=== PATIENT | female | born 1955 ===

== ENCOUNTER 2018-09-14 17:43 | Inpatient (IN) | payer MEDICAID ==
[~2018-09-14] VITALS: Ht 175.3 cm; Wt 124.0 kg
--- NOTE | ~2018-09-14 | MORECARE ---
CASE MANAGEMENT DISCHARGE SUMMARY PATIENT: STACY DAVIS UNIT: [id number] ADM DATE: 09/14/18 AGE: 62 : 53 SEX: F ROOM/BED: D.2131 AUTHOR: KERRI,DOC PHYSICIAN: REFERRING PHYSICIAN: JAIMIE JENSEN MD DATE OF SERVICE: 10/03/18 Discharge Plan Patient Name: STACY DAVIS Facility: [facility]:[place] : 1955 Planned Disposition: Home Anticipated Discharge Date: 10/02/18 Discharge Date: 10/02/2018 Expected LOS: 18 Initial Reviewer: [id number] Initial Review Date: 09/14/2018 Generated: 10/03/18 8:21 pm Comments DCP- Discharge Planning Updated by [id number]: Demetria Sams on 10/03/18 5:[address] TC TO [facility] TO ADVISE OF DISCHARGE, SPOKE WITH ANSWERING SERVICE, LUIS. REC CB FROM PRIYA GILLIAM. FAXED DISCHARGE MED LIST AND DISCHARGE INSTRUCTION TO [phone]. PATIENT DAUGHTER DID CALL TODAY TO THE UNIT TO SAYS SHE DID NOT THINK SHE COULD PROVIDE THE CARE THE PATIENT NEEDED. SHE DOES NOT HAVE TRANSPORTATION FOR HD. SHE WILL BE CALLING PATIENT MD IN THE AM. CM ADVISED MANE THE HOME HEALTH NURSE. DCP- Discharge Planning Updated by [id number]: Demetria Sams on 10/02/18 3:[address] LATE ENTRY 1300 PATIENT FOR DISCHARGE TO HOME TODAY. PRIMARY NURSE SPOKE WITH BRICE REGARDING TRANSPORTATION TO HOME. PATIENT LIVES IN [place], [place]. SHE IS A TWO MAN ASSIST TO GET OOB. SHE IS UNABLE TO ASSIST ANY WITH SIT TO STAND. PATIENT REPORTEDLY PLACES STAFF AT RISK TRYING TO LIFT OOB TO CHAIR. SHE HAS SEVERE LE EDEMA. HAD TWO OPEN WOUNDS ON LEFT LOWER LEG. PRIMARY NURSE TO EVAL AND REDRESS. PATIENT WEIGHS 273 LBS. TRANSPORT IS APPROXIAMTELY 2 HRS. WOULD NOT TOLERATE SITTING IN VECHICLE FOR 2 HOURS. BRICE SPOKE WITH THE PRIMARY NURSE AND CALLED PATIENT'S DAUGHTER, FRITZ PERALES, WHO WAS ATTEMPTING TO FIND SOME ASSISTANCE FOR TRANSPORTATION POST DISCHARGE. DISCUSS REGARDING SAFE DISCHARGE TO HOME. PCS FORM COMPLETED FOR DISCHARGE TO HOME VIA [facility].. DCP- Discharge Planning Updated by [id number]: Balwinder Gomez on 09/29/18 2:[address] Patient Name: STACY DAVIS Encounter No: [id number] : 1955 Primary Insurance: MEDICAID [place] Anticipated DC Date: 10-02-2018 Planned Disposition: Home WITH HOME HEALTH External Planned Provider: [facility] OFFICE DCP follow-up note: CM SPOKE TO PT IN ROOM WHO REPORTS SHE IS GOING TO GO HOME WITH FAMILY SUPPORT AND TO SPEAK TO HER DAUGHTER KARL PERALES. PT WILL ACCEPT HOME HEALTH AND HAS NO PREFERENCE ON HOME HEALTH PROVIDER, CHOICE SIGNED. PT REFUSES NURSING HOME FACILITY PLACEMENT. CM SPOKE TO KARL PERALES, DAUGHTER, . CM REVIEWED THERAPY NOTES AND EMPHASIZED PT'S LOW LEVEL OF FUNCTIONING. KARL REPORTS HAVING HERSELF AND OTHER FAMILY TO ASSIST PT AT HOME, THEY HAVE WHEELCHAIR AND WILL BE TAKING PT TO AND FROM DIALYSIS. KARL HAS CONTACTED [facility] AND STARTED PROCESS TO REQUEST HOME MEDICAID AIDE SERVICE TO ALSO ASSIST WITH PT'S CARE. KARL REPORTS SHE WILL ARRANGE FAMILY TO GREEN INSPECTOR PT ON DISCHARGE THURSDAY. THEY HAVE NO PREFERENCE ON HOME HEALTH SERVICES. CM CALLED [facility] IN [place], , SPOKE TO PEDRO WHO REPORTS THEY CAN ACCEPT AND ADMIT ON THURSDAY OR THURSDAY DEPENDING ON DISCHARGE DAY. CM FAXED REFERRAL TO [facility] AT [phone]. PT WILL DISCHARGE TO HOME OF DAUGHTER, KARL PERALES, [address] [place] [address]. [phone]. KARL'S NUMBER IS [phone]. FAX DISCHARGE INFORMATION TO [facility], . NOTIFY [facility] OF DISCHAGE AT [phone]. Balwinder Gomez, CASE MANAGEMENT DCP- Discharge Planning Updated by [email or web address]: Balwinder Gomez on 09/28/18 11:[address] Patient Name: STACY DAVIS Encounter No: [id number] : 1955 Primary Insurance: MEDICAID [place] Anticipated DC Date: 10-02-2018 Planned Disposition: Home DCP follow-up note: CM RECEIVED CALL FROM ALISSA DELGADILLO, PT'S DAUGHTER, ; ALISSA REPORTS THAT PT IS NOT ABLE TO WALK, WILL NOT GO TO A NURSING HOME FACILITY AND WILL NOT LET HOME HEALTH COME TO HER HOUSE. PT IS PLANNING TO STAY WITH PT'S DAUGHTER, ABDELRAHMAN'S SISTER, AT DISCHARGE. ALISSA REPORTS THAT PT HAS NO POWER OF RN ENDOSCOPY FOR ANY FAMILY MEMBER AND APPEARS TO BE IN HER RIGHT MIND AT THIS TIME. CM EXPLAINED THAT IF PT IS REFUSING ALL HOME ASSISTANCE OR REHAB SERVICES, CM IS NOT ABLE TO ARRANGE SERVICES AND IF PT IS NOT MAKING SAFE DECISIONS, ADULT PROTECTIVE SERVICES MAY BE CALLED BY CM. ALISSA REPORTS THAT SILVINA OF [facility]ULT [facility]OT[facility] CAME OUT TO PT'S HOME PRIOR TO PT'S ADMISSION AND MET WITH PT IN THE HOME. ALISSA WILL SPEAK TO PT AND ENCOURAGE HER TO ACCEPT HOME HEALTH OR NURSING HOME FACILITY PLACMENT FOR SALES AND MARKETING MANAGER CARE PT HAS MEDICAID ONLY. CM SPOKE TO PT IN ROOM TO DISCUSS DISCHARGE NEEDS AND PLANNING. CM WENT OVER PT'S THERAPY NOTES AND POINTED OUT PT'S INABILITY TO GET OUT OF BED AND EVEN GET AROUND THE ROOM WITHOUT ASSITANCE; CM INFORMED PT THAT SHE NEEDS TO BE DOING MORE AND NEEDS TO BE UP AND ABLE TO SIT IN CHAIR FOR THREE HOURS OF DIALYSIS WELL TRANSFERRING FOR TRANSPORTATION. PT REPORTS THAT SHE HAS BEEN WORKING WITH THERAPY AND HAS NOT REFUSED THERAPY SESSSIONS BUT STATES THERAPY IS NOT GETTING HER UP AND OUT OF BED. CM INSTRUCTED PT TO SPECIFICALLY REQUEST TO BE UP AND WALKING AND OUT OF BED MUCH POSSIBLE. PT REPORTS UNDERSTANDING. CM DISCUSSED AVAILABILITY OF HOME HEALTH, REHAB SERVICES AND MEDICAL EQUIPMENT. PT CONTINUES TO REFUSE PLACEMENT IN NURSING HOME FACILITY,AND HOME HEALTH. PT HAS NO INSURANCE TO COVER INPATIENT REHAB OR REHAB IN NURSING HOME FACILITY. PT STATES SHE HAS HER DAUGHTER AND NUMEROUS NIECES AND NEPHEWS THAT WILL BE ASSISTING IN THE HOME AND THAT FAMILY WILLTRANSPORT HER HOME AT DISCHARGE. CM EXPLAINED THAT PT WILL NEED TO SPEAK TO HER FAMILY AND CONFIRM CARE ARRANGEMENTS PRIOR TO DISCHARGE. PT STATES SHE WILL SPEAK TO HER FAMILY. CM TO FOLLOW AND ASSIST NEEDED. SILVINA NGUYEN OF [facility] TO MEET WITH PT TODAY AND PROVIDE DIALYSIS SCHEDULE FOR [facility] [facility]. PT CONTINUES TO DECLINE HOME HEALTH OR PLACEMENT IN NURSING HOME FACILITY STATING FAMILY WILL BE PROVIDING HER CARE AT HOME. Balwinder Gomez, CASE MANAGEMENT DCP- Discharge Planning Updated by [id number]: Danette Ochoa on 09/28/18 9:[address] RECEIVED A CALL FROM SILVINA NGUYEN, CLINICAL [facility]ON FOR [facility]. SHE STATED THAT [place] HAS DECIDED TO ACCEPT THE PATIENT FOR DIALYSIS, BUT BEING THAT THIS IS A HOLIDAY WEEKEND, THE CHAIRS ARE ALL FULL AND THEY WILL NOT BE ABLE TO TAKE THE PATIENT FOR START UNTIL 10-05. THE PATIENT WILL NEED TO STAY AND DIALYZE HERE THROUGH THURSDAY. DEREK WILL RELAY THIS INFORMATION TO THE PATIENT. DCP- Discharge Planning Updated by [email or web address]: Balwinder Gomez on 09/22/18 4:[address] Patient Name: STACY DAVIS Admission Status: Elective Accout number: [id number] Admission Date: 09-14-2018 : 1955 Admission Diagnosis:WEAKNESS Attending: JAIMIE JENSEN Current LOS: 8 Anticipated DC Date: 09-23-2018 Planned Disposition: Home Primary Insurance: MEDICAID [place] Discharge Planning Comments: CM RECEIVED ORDER FOR HOME HEALTH. CM MET WITH PT IN ROOM TO DISCUSS DISCHARGE PLANNING AND NEEDS. PT REPORTS LIVING AT HOME INDEPENDENTLY WITH AND ALONE. PT REPORTS HAVING FAMILY ASSISTANCE AT HOME IF NEEDED. PT HAS CANE AND WALKER WITH WHEELS SEAT AND BRAKES. PT PREFERS [employer] FOR MEDICAL EQUIPMENT. PT HAS NO OUTSIDE SERVICES ASSISTING IN THE HOME. CM DISCUSSED AVAILABILITY OF HOME HEALTH, REHAB SERVICES AND MEDICAL EQUIPMENT. PT DENIES DISCHARGE NEEDS, DECLINED HOME HEALTH. PT REPORTS HER DAUGHTER WILL PICK HER UP FOR DISCHARGE HOME. CM INFORMED RENAL NURSE AIME OF PT'S REFUSAL OF HOME HEALTH SERVICES. RN BRICE [place] NOTIFIED SILVINA OF [facility] OF ORDER FOR OUTPATIENT DIALYSIS CLINIC ARRANGEMENT NEEDED. PT REPORTS THAT SHE USES THE MEDICAID TRANSPORT BUS FOR MEDICAL APPOINTMENTS AND WILL ARRANGE THEM FOR OUTPATIENT DIALYSIS. PT PLANS TO DISCHARGE HOME ALONE, HAS ASSISTANCE OF FAMILY IF NEEDED, DECLINED HOME HEALTH. Cold Mill Inspector: Balwinder Gomez DCPIA - Discharge Planning Initial Assessment Updated by [email or web address]: Balwinder Gomez on 09/28/18 12:18 pm * Is the patient Alert and Oriented? Yes * How many steps to enter\exit or inside your home? * PCP DR. GUZMAN IN [place] * Pharmacy [facility] IN [place] * Preadmission Environment Home Alone * ADLs Independent * Equipment Other * Other Equipment WALKER WITH 4 WHEELS, SEAT AND BRAKES [employer] - PREFERRED PROVIDER * List name and contact numbers for known caregivers / representatives who currently or will assist patient after discharge: FRITZ PERALES, DTR, ALISSA DRISCOLL, DTR, * Verbal permission to speak to the caregivers and representatives has been obtained from the patient. N/A * Community resources currently utilized None * Please name any agencies selected above. NONE * Additional services required to return to the preadmission environment? Yes * Can the patient safely return to the preadmission environment? Yes * Has this patient been hospitalized within the prior 30 days at any hospital? Yes Coverage Notice Reviewer: [id number] Rafael Gomez Notice Issued Date-Time: 09/29/2018 16:00 Notice Type: Patient Choice Letter Notice Delivered To: Patient Relationship to Patient: Frame Welder Cargo Utility Trailers Name: Delivery Method: HAND - Hand Delivered Isabel Days: Prior Verbal Notification: Recipient Understood Notice: Yes Recipient Signature: Yes Med Rec Note Co-signed by Attending: Coverage Notice Comment: NO [facility] PROVIDER PREFERENCE- Last DP export: 10/03/18 6:02 Patient Name: STACY DAVIS Page [id number] at 1921 All edits/amendments must be made on the electronic document DICTATION DATE: 10/03/181919 COMPUTER CONSOLE OPERATOR: TAMAR 10/03/181919 RPT#: [id number] DC DATE:10/02/18 STATUS: DIS IN [facility] [address] [place] [address] END OF REPORT
--- NOTE | ~2018-09-14 | MORECARE ---
CASE MANAGEMENT DISCHARGE SUMMARY PATIENT: STACY DAVIS UNIT: [id number] ADM DATE: 09/14/18 AGE: 62 : 53 SEX: F ROOM/BED: D.2131 AUTHOR: KERRI,DOC PHYSICIAN: REFERRING PHYSICIAN: JAIMIE JENSEN MD DATE OF SERVICE: 09/29/18 Discharge Plan Patient Name: STACY DAVIS Facility: [facility]:[place] : 1955 Planned Disposition: Home Anticipated Discharge Date: 10/02/18 Discharge Date: Expected LOS: 18 Initial Reviewer: [id number] Initial Review Date: 09/14/2018 Generated: 09/29/18 4:21 pm Comments DCP- Discharge Planning Updated by [id number]: Balwinder Gomez on 09/28/18 11:[address] Patient Name: STACY DAVIS Encounter No: [id number] : 1955 Primary Insurance: MEDICAID [place] Anticipated DC Date: 10-02-2018 Planned Disposition: Home DCP follow-up note: CM RECEIVED CALL FROM ALISSA DELGADILLO, PT'S DAUGHTER, ; ALISSA REPORTS THAT PT IS NOT ABLE TO WALK, WILL NOT GO TO A CORRECTION FACILITY AND WILL NOT LET HOME HEALTH COME TO HER HOUSE. PT IS PLANNING TO STAY WITH PT'S DAUGHTER, ABDELRAHMAN'S SISTER, AT DISCHARGE. ALISSA REPORTS THAT PT HAS NO POWER OF SHAMPOOER FOR ANY FAMILY MEMBER AND APPEARS TO BE IN HER RIGHT MIND AT THIS TIME. CM EXPLAINED THAT IF PT IS REFUSING ALL HOME ASSISTANCE OR REHAB SERVICES, CM IS NOT ABLE TO ARRANGE SERVICES AND IF PT IS NOT MAKING SAFE DECISIONS, ADULT PROTECTIVE SERVICES MAY BE CALLED BY CM. ALISSA REPORTS THAT SILVINA OF [facility]ULT [facility]OT[facility] CAME OUT TO PT'S HOME PRIOR TO PT'S ADMISSION AND MET WITH PT IN THE HOME. ALISSA WILL SPEAK TO PT AND ENCOURAGE HER TO ACCEPT HOME HEALTH OR [facility] FACILITY PLACMENT FOR SIGN MAINTENANCE CARE PT HAS MEDICAID ONLY. CM SPOKE TO PT IN ROOM TO DISCUSS DISCHARGE NEEDS AND PLANNING. CM WENT OVER PT'S THERAPY NOTES AND POINTED OUT PT'S INABILITY TO GET OUT OF BED AND EVEN GET AROUND THE ROOM WITHOUT ASSITANCE; CM INFORMED PT THAT SHE NEEDS TO BE DOING MORE AND NEEDS TO BE UP AND ABLE TO SIT IN CHAIR FOR THREE HOURS OF DIALYSIS WELL TRANSFERRING FOR TRANSPORTATION. PT REPORTS THAT SHE HAS BEEN WORKING WITH THERAPY AND HAS NOT REFUSED THERAPY SESSSIONS BUT STATES THERAPY IS NOT GETTING HER UP AND OUT OF BED. CM INSTRUCTED PT TO SPECIFICALLY REQUEST TO BE UP AND WALKING AND OUT OF BED MUCH POSSIBLE. PT REPORTS UNDERSTANDING. CM DISCUSSED AVAILABILITY OF HOME HEALTH, REHAB SERVICES AND MEDICAL EQUIPMENT. PT CONTINUES TO REFUSE PLACEMENT IN CORRECTION FACILITY,AND HOME HEALTH. PT HAS NO INSURANCE TO COVER INPATIENT REHAB OR REHAB IN CORRECTION FACILITY. PT STATES SHE HAS HER DAUGHTER AND NUMEROUS NIECES AND NEPHEWS THAT WILL BE ASSISTING IN THE HOME AND THAT FAMILY WILLTRANSPORT HER HOME AT DISCHARGE. CM EXPLAINED THAT PT WILL NEED TO SPEAK TO HER FAMILY AND CONFIRM CARE ARRANGEMENTS PRIOR TO DISCHARGE. PT STATES SHE WILL SPEAK TO HER FAMILY. CM TO FOLLOW AND ASSIST NEEDED. SILVINA NGUYEN OF [facility] TO MEET WITH PT TODAY AND PROVIDE DIALYSIS SCHEDULE FOR [place] [facility]. PT CONTINUES TO DECLINE HOME HEALTH OR PLACEMENT IN [facility] FACILITY STATING FAMILY WILL BE PROVIDING HER CARE AT HOME. Balwinder Gomez, CASE MANAGEMENT DCP- Discharge Planning Updated by [id number]: Danette Ochoa on 09/28/18 9:[address] RECEIVED A CALL FROM SILVINA NGUYEN, CLINICAL [facility] FOR [facility]. SHE STATED THAT [facility] HAS DECIDED TO ACCEPT THE PATIENT FOR DIALYSIS, BUT BEING THAT THIS IS A HOLIDAY WEEKEND, THE CHAIRS ARE ALL FULL AND THEY WILL NOT BE ABLE TO TAKE THE PATIENT FOR START UNTIL THURSDAY, 10-05. THE PATIENT WILL NEED TO STAY AND DIALYZE HERE THROUGH THURSDAY. DEREK WILL RELAY THIS INFORMATION TO THE PATIENT. DCP- Discharge Planning Updated by [id number]: Balwinder Gomez on 09/22/18 4:[address] Patient Name: STACY DAVIS Admission Status: Elective Accout number: [id number] Admission Date: 09-14-2018 : 1955 Admission Diagnosis:WEAKNESS Attending: JAIMIE JENSEN Current LOS: 8 Anticipated DC Date: 09-23-2018 Planned Disposition: Home Primary Insurance: MEDICAID [place] Discharge Planning Comments: CM RECEIVED ORDER FOR HOME HEALTH. CM MET WITH PT IN ROOM TO DISCUSS DISCHARGE PLANNING AND NEEDS. PT REPORTS LIVING AT HOME INDEPENDENTLY WITH AND ALONE. PT REPORTS HAVING FAMILY ASSISTANCE AT HOME IF NEEDED. PT HAS CANE AND WALKER WITH WHEELS SEAT AND BRAKES. PT PREFERS [employer] FOR MEDICAL EQUIPMENT. PT HAS NO OUTSIDE SERVICES ASSISTING IN THE HOME. CM DISCUSSED AVAILABILITY OF HOME HEALTH, REHAB SERVICES AND MEDICAL EQUIPMENT. PT DENIES DISCHARGE NEEDS, DECLINED HOME HEALTH. PT REPORTS HER DAUGHTER WILL PICK HER UP FOR DISCHARGE HOME. CM INFORMED RENAL NURSE AIME OF PT'S REFUSAL OF HOME HEALTH SERVICES. RN [facility] NOTIFIED SILVINA OF [facility] OF ORDER FOR OUTPATIENT DIALYSIS CLINIC ARRANGEMENT NEEDED. PT REPORTS THAT SHE USES THE MEDICAID TRANSPORT BUS FOR MEDICAL APPOINTMENTS AND WILL ARRANGE THEM FOR OUTPATIENT DIALYSIS. PT PLANS TO DISCHARGE HOME ALONE, HAS ASSISTANCE OF FAMILY IF NEEDED, DECLINED HOME HEALTH. Car Greaser: Balwinder Gomez NHPIA - Discharge Planning Initial Assessment Updated by [id number]: Balwinder Gomez on 09/28/18 12:18 pm * Is the patient Alert and Oriented? Yes * How many steps to enter\exit or inside your home? * PCP DR. GUZMAN IN [place] * Pharmacy [facility] IN [place] * Preadmission Environment Home Alone * ADLs Independent * Equipment Other * Other Equipment WALKER WITH 4 WHEELS, SEAT AND BRAKES [employer] - PREFERRED PROVIDER * List name and contact numbers for known caregivers / representatives who currently or will assist patient after discharge: FRIZT PERALES, DTR, ALISSA DRISCOLL, DTR, * Verbal permission to speak to the caregivers and representatives has been obtained from the patient. N/A * Community resources currently utilized None * Please name any agencies selected above. NONE * Additional services required to return to the preadmission environment? Yes * Can the patient safely return to the preadmission environment? Yes * Has this patient been hospitalized within the prior 30 days at any hospital? Yes Last DP export: 09/28/18 11:20 Patient Name: STACY DAVIS Page [id number] at 1521 All edits/amendments must be made on the electronic document DICTATION DATE: 09/29/18 152 AUTO ENGINE MECHANIC: TAMAR 09/29/18 1520 RPT#: [id number] [place] DATE: STATUS: ADM IN [facility] [address] [facility] [place] [address] END OF REPORT
--- NOTE | ~2018-09-14 | MORECARE ---
CASE MANAGEMENT DISCHARGE SUMMARY PATIENT: STACY DAVIS UNIT: [id number] ADM DATE: 09/14/18 AGE: 62 : [birth year] SEX: F ROOM/BED: D.2131 AUTHOR: KERRI,DOC PHYSICIAN: REFERRING PHYSICIAN: JAIMIE JENSEN MD DATE OF SERVICE: 09/29/18 Discharge Plan Patient Name: STACY DAVIS Facility: [facility]:[place] : 1955 Planned Disposition: Home Anticipated Discharge Date: 10/02/18 Discharge Date: Expected LOS: 18 Initial Reviewer: [email or web address] Initial Review Date: 09/14/2018 Generated: 09/29/18 4:49 pm Comments DCP- Discharge Planning Updated by [email or web address]: Balwinder Gomez on 09/29/18 2:[address] Patient Name: STACY DAVIS Encounter No: [id number] : 1955 Primary Insurance: MEDICAID [place] Anticipated DC Date: 10-02-2018 Planned Disposition: Home WITH HOME HEALTH External Planned Provider: [facility] OFFICE DCP follow-up note: CM SPOKE TO PT IN ROOM WHO REPORTS SHE IS GOING TO GO HOME WITH FAMILY SUPPORT AND TO SPEAK TO HER DAUGHTER KARL PERALES. PT WILL ACCEPT HOME HEALTH AND HAS NO PREFERENCE ON HOME HEALTH PROVIDER, CHOICE SIGNED. PT REFUSES RETIREMENT FACILITY PLACEMENT. CM SPOKE TO KARL PERALES, DAUGHTER, . CM REVIEWED THERAPY NOTES AND EMPHASIZED PT'S LOW LEVEL OF FUNCTIONING. KARL REPORTS HAVING HERSELF AND OTHER FAMILY TO ASSIST PT AT HOME, THEY HAVE WHEELCHAIR AND WILL BE TAKING PT TO AND FROM DIALYSIS. KARL HAS [facility]ED [facility] AND STARTED PROCESS TO REQUEST HOME MEDICAID AIDE SERVICE TO ALSO ASSIST WITH PT'S CARE. KARL REPORTS SHE WILL ARRANGE FAMILY TO EMPLOYMENT CONSULTANT PT ON DISCHARGE THURSDAY. THEY HAVE NO PREFERENCE ON HOME HEALTH SERVICES. BRICE CALLED [facility] IN [place], , SPOKE TO PEDRO WHO REPORTS THEY CAN ACCEPT AND ADMIT ON THURSDAY OR THURSDAY DEPENDING ON DISCHARGE DAY. CM FAXED REFERRAL TO [facility] IN [facility] AT [phone]. PT WILL DISCHARGE TO HOME OF DAUGHTER, KARL PERALES, [address], [place] [address]. KARL'S NUMBER IS [phone]. FAX DISCHARGE INFORMATION TO [facility], . NOTIFY [facility] OF DISCHAGE AT [phone]. Balwinder Gomez, CASE MANAGEMENT DCP- Discharge Planning Updated by [email or web address]: Balwinder Gomez on 09/28/18 11:[address] Patient Name: STACY DAVIS Encounter No: [id number] : 1955 Primary Insurance: MEDICAID [place] Anticipated DC Date: 10-02-2018 Planned Disposition: Home DCP follow-up note: CM RECEIVED CALL FROM ALISSA TRANSATYA, PT'S DAUGHTER, ; ALISSA REPORTS THAT PT IS NOT ABLE TO WALK, WILL NOT GO TO A RETIREMENT FACILITY AND WILL NOT LET HOME HEALTH COME TO HER HOUSE. PT IS PLANNING TO STAY WITH PT'S DAUGHTER, ABDELRAHMAN'S SISTER, AT DISCHARGE. ALISSA REPORTS THAT PT HAS NO POWER OF DISC RECORDIST FOR ANY FAMILY MEMBER AND APPEARS TO BE IN HER RIGHT MIND AT THIS TIME. CM EXPLAINED THAT IF PT IS REFUSING ALL HOME ASSISTANCE OR REHAB SERVICES, CM IS NOT ABLE TO ARRANGE SERVICES AND IF PT IS NOT MAKING SAFE DECISIONS, ADULT PROTECTIVE SERVICES MAY BE CALLED BY CM. ALISSA REPORTS THAT SILVINA OF [facility] CAME OUT TO PT'S HOME PRIOR TO PT'S ADMISSION AND MET WITH PT IN THE HOME. ALISSA WILL SPEAK TO PT AND ENCOURAGE HER TO ACCEPT HOME HEALTH OR RETIREMENT FACILITY PLACMENT FOR JOB HAND CARE PT HAS MEDICAID ONLY. CM SPOKE TO PT IN ROOM TO DISCUSS DISCHARGE NEEDS AND PLANNING. CM WENT OVER PT'S THERAPY NOTES AND POINTED OUT PT'S INABILITY TO GET OUT OF BED AND EVEN GET AROUND THE ROOM WITHOUT ASSITANCE; CM INFORMED PT THAT SHE NEEDS TO BE DOING MORE AND NEEDS TO BE UP AND ABLE TO SIT IN CHAIR FOR THREE HOURS OF DIALYSIS WELL TRANSFERRING FOR TRANSPORTATION. PT REPORTS THAT SHE HAS BEEN WORKING WITH THERAPY AND HAS NOT REFUSED THERAPY SESSSIONS BUT STATES THERAPY IS NOT GETTING HER UP AND OUT OF BED. CM INSTRUCTED PT TO SPECIFICALLY REQUEST TO BE UP AND WALKING AND OUT OF BED MUCH POSSIBLE. PT REPORTS UNDERSTANDING. CM DISCUSSED AVAILABILITY OF HOME HEALTH, REHAB SERVICES AND MEDICAL EQUIPMENT. PT CONTINUES TO REFUSE PLACEMENT IN RETIREMENT FACILITY,AND HOME HEALTH. PT HAS NO INSURANCE TO COVER INPATIENT REHAB OR REHAB IN RETIREMENT FACILITY. PT STATES SHE HAS HER DAUGHTER AND NUMEROUS NIECES AND NEPHEWS THAT WILL BE ASSISTING IN THE HOME AND THAT FAMILY WILLTRANSPORT HER HOME AT DISCHARGE. CM EXPLAINED THAT PT WILL NEED TO SPEAK TO HER FAMILY AND CONFIRM CARE ARRANGEMENTS PRIOR TO DISCHARGE. PT STATES SHE WILL SPEAK TO HER FAMILY. CM TO FOLLOW AND ASSIST NEEDED. SILVINA NGUYEN OF [facility] TO MEET WITH PT TODAY AND PROVIDE DIALYSIS SCHEDULE FOR [place] [facility]. PT CONTINUES TO DECLINE HOME HEALTH OR PLACEMENT IN RETIREMENT FACILITY STATING FAMILY WILL BE PROVIDING HER CARE AT HOME. Balwinder Gomez, CASE MANAGEMENT DCP- Discharge Planning Updated by [email or web address]: Danette Ochoa on 09/28/18 9:[address] RECEIVED A CALL FROM SILVINA NGUYEN, [facility]. SHE STATED THAT [place] HAS DECIDED TO ACCEPT THE PATIENT FOR DIALYSIS, BUT BEING THAT THIS IS A HOLIDAY WEEKEND, THE CHAIRS ARE ALL FULL AND THEY WILL NOT BE ABLE TO TAKE THE PATIENT FOR START UNTIL THURSDAY, 10-05. THE PATIENT WILL NEED TO STAY AND DIALYZE HERE THROUGH THURSDAY. DEREK WILL RELAY THIS INFORMATION TO THE PATIENT. DCP- Discharge Planning Updated by [id number]: Balwinder Gomez on 09/22/18 4:[address] Patient Name: STACY DAVIS Admission Status: Elective Accout number: [id number] Admission Date: 09-14-2018 : 1955 Admission Diagnosis:WEAKNESS Attending: JAIMIE JENSEN Current LOS: 8 Anticipated DC Date: 09-23-2018 Planned Disposition: Home Primary Insurance: MEDICAID [place] Discharge Planning Comments: CM RECEIVED ORDER FOR HOME HEALTH. CM MET WITH PT IN ROOM TO DISCUSS DISCHARGE PLANNING AND NEEDS. PT REPORTS LIVING AT HOME INDEPENDENTLY WITH AND ALONE. PT REPORTS HAVING FAMILY ASSISTANCE AT HOME IF NEEDED. PT HAS CANE AND WALKER WITH WHEELS SEAT AND BRAKES. PT PREFERS [facility] FOR MEDICAL EQUIPMENT. PT HAS NO OUTSIDE SERVICES ASSISTING IN THE HOME. CM DISCUSSED AVAILABILITY OF HOME HEALTH, REHAB SERVICES AND MEDICAL EQUIPMENT. PT DENIES DISCHARGE NEEDS, DECLINED HOME HEALTH. PT REPORTS HER DAUGHTER WILL PICK HER UP FOR DISCHARGE HOME. CM INFORMED RENAL NURSE AIME OF PT'S REFUSAL OF HOME HEALTH SERVICES. RN [facility] NOTIFIED SILVINA OF [facility] OF ORDER FOR OUTPATIENT DIALYSIS CLINIC ARRANGEMENT NEEDED. PT REPORTS THAT SHE USES THE MEDICAID TRANSPORT BUS FOR MEDICAL APPOINTMENTS AND WILL ARRANGE THEM FOR OUTPATIENT DIALYSIS. PT PLANS TO DISCHARGE HOME ALONE, HAS ASSISTANCE OF FAMILY IF NEEDED, DECLINED HOME HEALTH. Spring Forger: Balwinder Gomez DCPIA - Discharge Planning Initial Assessment Updated by [email or web address]: Balwinder Gomez on 09/28/18 12:18 pm * Is the patient Alert and Oriented? Yes * How many steps to enter\exit or inside your home? * PCP DR. GUZMAN IN [place] * Pharmacy [facility] IN [place] * Preadmission Environment Home Alone * ADLs Independent * Equipment Other * Other Equipment WALKER WITH 4 WHEELS, SEAT AND BRAKES [employer] - PREFERRED PROVIDER * List name and contact numbers for known caregivers / representatives who currently or will assist patient after discharge: FRITZ PERALES, DTR, ALISSA DRISCOLL DTR, * Verbal permission to speak to the caregivers and representatives has been obtained from the patient. N/A * Community resources currently utilized None * Please name any agencies selected above. NONE * Additional services required to return to the preadmission environment? Yes * Can the patient safely return to the preadmission environment? Yes * Has this patient been hospitalized within the prior 30 days at any hospital? Yes External Providers External Provider: [facility] Next Contact Date: 10/02/2018 Service Request Date: Service Type: Resolution: Reviewer: Comments: Last DP export: 09/29/18 2:21 Patient Name: STACY DAVIS Page [phone] at 1549 All edits/amendments must be made on the electronic document DICTATION DATE: 09/29/181548 LAND SALES AGENT: TAMAR 09/29/181548 RPT#: [id number] DC DATE: STATUS: ADM IN [facility] [address] [place] [address] END OF REPORT
--- NOTE | ~2018-09-14 | EC ---
PATIENT:STACY DAVIS DATE OF SERVICE: 09/14/18 SEX: F MEDICAL RECORD: [id number] DATE OF : [birth year] LOCATION:D.M2 D.213 AGE OF PATIENT: 62 ADMISSION DATE: 09/14/18 REFERRING PHYSICIAN: INTERPRETING PHYSICIAN: ROSA FLYNN MD ECHOCARDIOGRAM REPORT ECHO CHARGES 4 ECHO COMPLETE Date: 09/15/18 CLINICAL DIAGNOSIS: CHF ECHOCARDIOGRAPHIC MEASUREMENTS (adult normal given) AC root (d.<3.7cm) 3.6 cm LV Septum d (<1.2 cm> 2.0 cm Valve Excursion 0.8 cm LV Septum (systole) 2.2 cm Left Atria (s.<4.0cm> 4.3 cm LVPW d(<1.2cm) 1.6 cm RV (d.<2.3cm) 2.0 cm LVPW (sytole) 1.6 cm LV diastole(<5.6CM) 5.6 cm MV E-F(>70mm/sec) cm LV systole 4.2 cm LVOT Diameter 1.7 cm MV exc.(>10mm) cm Est.ejection fraction (50-75%) % DOPPLER: LVIT cm/sec A 100 cm/sec E 68 cm/sec LA cm/sec RVSP 41.7 mmHg LVOT cm/sec AOP1/2T m/s Asc. Ao 177 cm/sec RVOT 107 cm/sec RA cm/sec PA 73 cm/sec AV Gradient Peak 12.59mmHg AV Mean 6.8 mmHg AV Area cm MV Gradient Peak 3.3 mmHg MV Mean 2.2 mmHg MV Area cm COMMENTS: Musical Engineer: Michael CARRASCO Medicare Sales Representative: Johanna Flynn TAPE# PACS Pericardial Effusion N DATE OF SERVICE: 09/16/2018 FINDINGS: 1. Left ventricular chamber size is within normal limits. Left ventricular systolic function is normal. Overall ejection fraction estimated at 60%. 2. Left atrium, right atrium, right ventricle chamber size is within normal limits. 3. Valvular structures have normal structure and motion. 4. Doppler interrogation reveals only mild mitral regurgitation, mild tricuspid regurgitation, no other valvular insufficiency or stenosis. ECHOCARDIOGRAM REPORT [id number] STACY DAVIS 5. No evidence of pericardial effusion or left ventricular thrombus. TRANSINT:[id number] Voice Confirmation ID: [id number] DOCUMENT ID: [id number] ROSA FLYNN MD at 1059 CC: [id number] DICTATION DATE: 09/16/18 1244 NATURALIST: 09/16/18 1305 ADM IN [place] [id number] [place] [id number]
--- NOTE | ~2018-09-14 | MORECARE ---
CASE MANAGEMENT DISCHARGE SUMMARY PATIENT: STACY DAVIS UNIT: [id number] ADM DATE: 09/14/18 AGE: 62 : 53 SEX: F ROOM/BED: D.2131 AUTHOR: KERRI,DOC PHYSICIAN: REFERRING PHYSICIAN: JAIMIE JENSEN MD DATE OF SERVICE: 09/28/18 Discharge Plan Patient Name: STACY DAVIS Facility: [facility]:[place] : 1955 Planned Disposition: Home Anticipated Discharge Date: 09/23/18 Discharge Date: Expected LOS: 9 Initial Reviewer: [email or web address] Initial Review Date: 09/14/2018 Generated: 09/28/18 11:15 am Comments DCP- Discharge Planning Updated by [email or web address]: Danette Ochoa on 09/28/18 9:[address] RECEIVED A CALL FROM SILVINA NGUYEN [facility]. SHE STATED THAT [facility] HAS DECIDED TO ACCEPT THE PATIENT FOR DIALYSIS, BUT BEING THAT THIS IS A HOLIDAY WEEKEND, THE CHAIRS ARE ALL FULL AND THEY WILL NOT BE ABLE TO TAKE THE PATIENT FOR START UNTIL THURSDAY, 10-05. THE PATIENT WILL NEED TO STAY AND DIALYZE HERE THROUGH THURSDAY. DEREK WILL RELAY THIS INFORMATION TO THE PATIENT. DCP- Discharge Planning Updated by [id number]: Balwinder Gomez on 09/22/18 4:[address] Patient Name: STACY DAVIS Admission Status: Elective Accout number: [id number] Admission Date: 09-14-2018 : 1955 Admission Diagnosis:WEAKNESS Attending: JAIMIE JENSEN Current LOS: 8 Anticipated DC Date: 09-23-2018 Planned Disposition: Home Primary Insurance: MEDICAID [place] Discharge Planning Comments: CM RECEIVED ORDER FOR HOME HEALTH. CM MET WITH PT IN ROOM TO DISCUSS DISCHARGE PLANNING AND NEEDS. PT REPORTS LIVING AT HOME INDEPENDENTLY WITH AND ALONE. PT REPORTS HAVING FAMILY ASSISTANCE AT HOME IF NEEDED. PT HAS CANE AND WALKER WITH WHEELS SEAT AND BRAKES. PT PREFERS [facility] FOR MEDICAL EQUIPMENT. PT HAS NO OUTSIDE SERVICES ASSISTING IN THE HOME. CM DISCUSSED AVAILABILITY OF HOME HEALTH, REHAB SERVICES AND MEDICAL EQUIPMENT. PT DENIES DISCHARGE NEEDS, DECLINED HOME HEALTH. PT REPORTS HER DAUGHTER WILL PICK HER UP FOR DISCHARGE HOME. CM INFORMED RENAL NURSE AIME OF PT'S REFUSAL OF HOME HEALTH SERVICES. RN [facility] NOTIFIED SILVINA OF [facility] OF ORDER FOR OUTPATIENT DIALYSIS CLINIC ARRANGEMENT NEEDED. PT REPORTS THAT SHE USES THE MEDICAID TRANSPORT BUS FOR MEDICAL APPOINTMENTS AND WILL ARRANGE THEM FOR OUTPATIENT DIALYSIS. PT PLANS TO DISCHARGE HOME ALONE, HAS ASSISTANCE OF FAMILY IF NEEDED, DECLINED HOME HEALTH. Appraisal Technician: Balwinder Gomez DCPIA - Discharge Planning Initial Assessment Updated by [email or web address]: Balwinder Gomez on 09/22/18 5:24 pm * Is the patient Alert and Oriented? Yes * How many steps to enter\exit or inside your home? * PCP DR. GUZMAN IN [place] * Pharmacy [facility] IN [place] * Preadmission Environment Home Alone * ADLs Independent * Equipment Other * Other Equipment WALKER WITH 4 WHEELS, SEAT AND BRAKES [employer] - PREFERRED PROVIDER * List name and contact numbers for known caregivers / representatives who currently or will assist patient after discharge: FRITZ PERALES, MICHAELR, * Verbal permission to speak to the caregivers and representatives has been obtained from the patient. N/A * Community resources currently utilized None * Please name any agencies selected above. NONE * Additional services required to return to the preadmission environment? Yes * Can the patient safely return to the preadmission environment? Yes * Has this patient been hospitalized within the prior 30 days at any hospital? Yes Last DP export: 09/22/18 4:29 Patient Name: STACY DAVIS Page 50223 at 1015 All edits/amendments must be made on the electronic document DICTATION DATE: 09/28/18 1014 FREIGHT BROKER AGENT: TAMAR 09/28/18 1014 RPT#: [id number] DC DATE: STATUS: ADM IN [facility] [address] [place] [address] END OF REPORT
--- NOTE | ~2018-09-14 | OP ---
PATIENT NAME: STACY DAVIS MEDICAL RECORD: [id number] :[birth year] LOCATION:D. D.2131 ADMISSION DATE:09/14/18 SURGEON: ROBERT SAVAGE MD DATE OF OPERATION: 09/23/2018 PREOPERATIVE DIAGNOSIS: End-stage renal disease without access for hemodialysis. POSTOPERATIVE DIAGNOSES: End-stage renal disease without access for hemodialysis. PROCEDURES: 1. Placement of right internal jugular HemoSplit catheter (cuffed dual-lumen hemodialysis catheter, under fluoroscopic guidance). 2. Immediate surgeon interpretation of the fluoroscopic images. SURGEON: Robert Savage MD SYSTEMS PROTECTION TECHNICIAN: None. BLOOD LOSS: Minimal. ANESTHESIA: General. COMPLICATIONS: None. The risks, possible complications, and alternatives to the procedure were explained to the patient. She elects to proceed. No radiologist was present for this procedure. Static fluoroscopic images were obtained and are kept in the PACS system. The surgeon interpretation of the radiographic images is dictated within the body of this operative note. OPERATIVE COURSE: The patient was conveyed to the operating room electively on 09/23/2018. General anesthesia was induced by the anesthesia staff. The right neck and right chest were sterilely prepped and draped. I interrogated the right neck with a hand-held ultrasound. The anatomy was interesting. There was a noncompressible right common carotid artery. There were 3 venous-appearing structures. All were compressible. One of these appeared to be the primary internal jugular vein. The other 2 had valves that could be seen opening and closing and these were located more medially. These may be what are called anterior jugular veins. They were quite large and almost as large as the internal jugular vein. Under ultrasonographic guidance, I percutaneously accessed the internal jugular vein in an antegrade fashion. A guidewire was passed easily. This was visualized under fluoroscopy. A small skin inga was accomplished. A counterincision was accomplished in the right anterior-superior chest. I tunneled a 19-cm HemoSplit catheter from the chest incision to the neck incision. Over the guidewire, I dilated to a larger size. A dilator sheath was then advanced. The dilator and wire were removed. Through the Peel-Away sheath, I advanced the tips of the HemoSplit catheter. The Peel-Away sheath was then removed. I then pulled back on the HemoSplit catheter to seat the cuff in the subcutaneous tissues. An image was obtained over the mediastinum. It revealed that the longest HemoSplit catheter tip appeared to be at the OPERATIVE REPORT [id number] DAVIS,STACY cavoatrial junction. The neck incision was closed with a single intracuticular 4-0 Vicryl suture. The flange of the HemoSplit catheter was sutured to the underlying skin with 2-0 nylons. Both lumens were flushed easily and aspirated dark, nonpulsatile blood. I then topped off both lumens of HemoSplit catheter with the appropriate amount of concentrated heparin. To help prevent postoperative bleeding, I stuffed some Fibrillar up along the HemoSplit catheter subcutaneous tract. Sterile dressings were applied. The patient was then extubated and conveyed to the post-anesthesia care unit, where she was in stable condition. TRANSINT:[id number] Voice Confirmation ID: [id number] DOCUMENT ID: [id number] ROBERT SAVAGE MD at 1403 CC: [id number] DICTATION DATE: 09/23/18 1555 CHANNELER OUTSOLE: 09/23/18 1930 ADM IN [facility] [address] [place] [address]
--- NOTE | ~2018-09-14 | MORECARE ---
CASE MANAGEMENT DISCHARGE SUMMARY PATIENT: STACY DAVIS UNIT: [id number] ADM DATE: 09/14/18 AGE: 62 : 53 SEX: F ROOM/BED: D.2133 AUTHOR: KERRI,DOC PHYSICIAN: REFERRING PHYSICIAN: JAIMIE JENSEN MD DATE OF SERVICE: 09/22/18 Discharge Plan Patient Name: STACY DAVIS Facility: [facility]:[place] : 1955 Planned Disposition: Home Anticipated Discharge Date: 09/23/18 Discharge Date: Expected LOS: 9 Initial Reviewer: [email or web address] Initial Review Date: 09/14/2018 Generated: 09/22/18 6:29 pm Comments DCP- Discharge Planning Updated by [email or web address]: Balwinder Gomez on 09/22/18 4:[address] Patient Name: STACY DAVIS Admission Status: Elective Accout number: [id number] Admission Date: 09-14-2018 : 1955 Admission Diagnosis:WEAKNESS Attending: JAIMIE JENSEN Current LOS: 8 Anticipated DC Date: 09-23-2018 Planned Disposition: Home Primary Insurance: MEDICAID [place] Discharge Planning Comments: CM RECEIVED ORDER FOR HOME HEALTH. CM MET WITH PT IN ROOM TO DISCUSS DISCHARGE PLANNING AND NEEDS. PT REPORTS LIVING AT HOME INDEPENDENTLY WITH AND ALONE. PT REPORTS HAVING FAMILY ASSISTANCE AT HOME IF NEEDED. PT HAS CANE AND WALKER WITH WHEELS SEAT AND BRAKES. PT PREFERS [facility] FOR MEDICAL EQUIPMENT. PT HAS NO OUTSIDE SERVICES ASSISTING IN THE HOME. CM DISCUSSED AVAILABILITY OF HOME HEALTH, REHAB SERVICES AND MEDICAL EQUIPMENT. PT DENIES DISCHARGE NEEDS, DECLINED HOME HEALTH. PT REPORTS HER DAUGHTER WILL PICK HER UP FOR DISCHARGE HOME. CM INFORMED RENAL NURSE AIME OF PT'S REFUSAL OF HOME HEALTH SERVICES. RN [facility] NOTIFIED SILVINA OF [facility] OF ORDER FOR OUTPATIENT DIALYSIS CLINIC ARRANGEMENT NEEDED. PT REPORTS THAT SHE USES THE MEDICAID TRANSPORT BUS FOR MEDICAL APPOINTMENTS AND WILL ARRANGE THEM FOR OUTPATIENT DIALYSIS. PT PLANS TO DISCHARGE HOME ALONE, HAS ASSISTANCE OF FAMILY IF NEEDED, DECLINED HOME HEALTH. Oncology Social Work: Balwinder Gomez DCPIA - Discharge Planning Initial Assessment Updated by [email or web address]: Balwinder Gomez on 09/22/18 5:24 pm * Is the patient Alert and Oriented? Yes * How many steps to enter\exit or inside your home? * PCP DR. GUZMAN IN [place] * Pharmacy [facility] IN [place] * Preadmission Environment Home Alone * ADLs Independent * Equipment Other * Other Equipment WALKER WITH 4 WHEELS, SEAT AND BRAKES [employer] - PREFERRED PROVIDER * List name and contact numbers for known caregivers / representatives who currently or will assist patient after discharge: FRITZ PERALES, DTR, * Verbal permission to speak to the caregivers and representatives has been obtained from the patient. N/A * Community resources currently utilized None * Please name any agencies selected above. NONE * Additional services required to return to the preadmission environment? Yes * Can the patient safely return to the preadmission environment? Yes * Has this patient been hospitalized within the prior 30 days at any hospital? Yes Patient Name: STACY DAVIS Page 86777 at 1729 All edits/amendments must be made on the electronic document DICTATION DATE: 09/22/181727 FINANCIAL BUSINESS ANALYST: TAMAR 09/22/181727 RPT#: [id number] DC DATE: STATUS: ADM IN [facility] [address] [place] [address] END OF REPORT
--- NOTE | ~2018-09-14 | MORECARE ---
CASE MANAGEMENT DISCHARGE SUMMARY PATIENT: STACY DAVIS UNIT: [id number] ADM DATE: 09/14/18 AGE: 62 : 53 SEX: F ROOM/BED: D.2131 AUTHOR: KERRI,DOC PHYSICIAN: REFERRING PHYSICIAN: JAIMIE JENSEN MD DATE OF SERVICE: 10/03/18 Discharge Plan Patient Name: STACY DAVIS Facility: [facility]:[place] : 1955 Planned Disposition: Home Anticipated Discharge Date: 10/02/18 Discharge Date: 10/02/2018 Expected LOS: 18 Initial Reviewer: [id number] Initial Review Date: 09/14/2018 Generated: 10/03/18 8:02 pm Comments DCP- Discharge Planning Updated by [email or web address]: Demetria Sams on 10/03/18 5:[address] TC TO [facility] TO ADVISE OF DISCHARGE, SPOKE WITH ANSWERING SERVICE, LUIS. REC CB FROM PRIYA GILLIAM. FAXED DISCHARGE MED LIST AND DISCHARGE INSTRUCTION TO [phone]. PATIENT DAUGHTER DID CALL TODAY TO THE UNIT TO SAYS SHE DID NOT THINK SHE COULD PROVIDE THE CARE THE PATIENT NEEDED. SHE DOES NOT HAVE TRANSPORTATION FOR HD. SHE WILL BE CALLING PATIENT MD IN THE AM. CM ADVISED MANE THE HOME HEALTH NURSE. DCP- Discharge Planning Updated by [id number]: Demetria Sams on 10/02/18 3:[address] LATE ENTRY 1300 PATIENT FOR DISCHARGE TO HOME TODAY. PRIMARY NURSE SPOKE WITH BRICE REGARDING TRANSPORTATION TO HOME. PATIENT LIVES IN [place], [place]. SHE IS A TWO MAN ASSIST TO GET OOB. SHE IS UNABLE TO ASSIST ANY WITH SIT TO STAND. PATIENT REPORTEDLY PLACES STAFF AT RISK TRYING TO LIFT OOB TO CHAIR. SHE HAS SEVERE LE EDEMA. HAD TWO OPEN WOUNDS ON LEFT LOWER LEG. PRIMARY NURSE TO EVAL AND REDRESS. PATIENT WEIGHS 273 LBS. TRANSPORT IS APPROXIAMTELY 2 HRS. WOULD NOT TOLERATE SITTING IN VECHICLE FOR 2 HOURS. BRICE SPOKE WITH THE PRIMARY NURSE AND CALLED PATIENT'S DAUGHTER, FRITZ PERALES, WHO WAS ATTEMPTING TO FIND SOME ASSISTANCE FOR TRANSPORTATION POST DISCHARGE. DISCUSS REGARDING SAFE DISCHARGE TO HOME. PCS FORM COMPLETED FOR DISCHARGE TO HOME VIA [facility].. DCP- Discharge Planning Updated by [id number]: Balwinder Gomez on 09/29/18 2:[address] Patient Name: STACY DAVIS Encounter No: [id number] : 1955 Primary Insurance: MEDICAID [place] Anticipated DC Date: 10-02-2018 Planned Disposition: Home WITH HOME HEALTH External Planned Provider: [facility] OFFICE DCP follow-up note: CM SPOKE TO PT IN ROOM WHO REPORTS SHE IS GOING TO GO HOME WITH FAMILY SUPPORT AND TO SPEAK TO HER DAUGHTER KARL PERALES. PT WILL ACCEPT HOME HEALTH AND HAS NO PREFERENCE ON HOME HEALTH PROVIDER, CHOICE SIGNED. PT REFUSES LONG TERM FACILITY PLACEMENT. CM SPOKE TO KARL PERALES, DAUGHTER, . CM REVIEWED THERAPY NOTES AND EMPHASIZED PT'S LOW LEVEL OF FUNCTIONING. KARL REPORTS HAVING HERSELF AND OTHER FAMILY TO ASSIST PT AT HOME, THEY HAVE WHEELCHAIR AND WILL BE TAKING PT TO AND FROM DIALYSIS. KARL HAS CONTACTED [facility] AND STARTED PROCESS TO REQUEST HOME MEDICAID AIDE SERVICE TO ALSO ASSIST WITH PT'S CARE. KARL REPORTS SHE WILL ARRANGE FAMILY TO PANEL ASSEMBLER PT ON DISCHARGE THURSDAY. THEY HAVE NO PREFERENCE ON HOME HEALTH SERVICES. CM CALLED [facility] IN [place], , SPOKE TO PEDRO WHO REPORTS THEY CAN ACCEPT AND ADMIT ON THURSDAY OR THURSDAY DEPENDING ON DISCHARGE DAY. CM FAXED REFERRAL TO [facility] IN [facility] AT [phone]. PT WILL DISCHARGE TO HOME OF DAUGHTER, KARL PERALES, [address] [place] [address]. [phone]. KARL'S NUMBER IS [phone]. FAX DISCHARGE INFORMATION TO [facility], . NOTIFY [facility] OF DISCHAGE AT [phone]. Balwinder Gomez, CASE MANAGEMENT DCP- Discharge Planning Updated by [email or web address]: Balwinder Gomez on 09/28/18 11:[address] Patient Name: STACY DAVIS Encounter No: [id number] : 1955 Primary Insurance: MEDICAID [place] Anticipated DC Date: 10-02-2018 Planned Disposition: Home DCP follow-up note: CM RECEIVED CALL FROM ALISSA DELGADILLO, PT'S DAUGHTER, ; ALISSA REPORTS THAT PT IS NOT ABLE TO WALK, WILL NOT GO TO A LONG TERM FACILITY AND WILL NOT LET HOME HEALTH COME TO HER HOUSE. PT IS PLANNING TO STAY WITH PT'S DAUGHTER, ABDELRAHMAN'S SISTER, AT DISCHARGE. ALISSA REPORTS THAT PT HAS NO POWER OF WASHTUB WORKER FOR ANY FAMILY MEMBER AND APPEARS TO BE IN HER RIGHT MIND AT THIS TIME. CM EXPLAINED THAT IF PT IS REFUSING ALL HOME ASSISTANCE OR REHAB SERVICES, CM IS NOT ABLE TO ARRANGE SERVICES AND IF PT IS NOT MAKING SAFE DECISIONS, ADULT PROTECTIVE SERVICES MAY BE CALLED BY CM. ALISSA REPORTS THAT SILVINA OF [facility]ULT [facility]OT[facility] SERVICES CAME OUT TO PT'S HOME PRIOR TO PT'S ADMISSION AND MET WITH PT IN THE HOME. ALISSA WILL SPEAK TO PT AND ENCOURAGE HER TO ACCEPT HOME HEALTH OR LONG TERM FACILITY PLACMENT FOR BATTERY RECHARGER CARE PT HAS MEDICAID ONLY. CM SPOKE TO PT IN ROOM TO DISCUSS DISCHARGE NEEDS AND PLANNING. CM WENT OVER PT'S THERAPY NOTES AND POINTED OUT PT'S INABILITY TO GET OUT OF BED AND EVEN GET AROUND THE ROOM WITHOUT ASSITANCE; CM INFORMED PT THAT SHE NEEDS TO BE DOING MORE AND NEEDS TO BE UP AND ABLE TO SIT IN CHAIR FOR THREE HOURS OF DIALYSIS WELL TRANSFERRING FOR TRANSPORTATION. PT REPORTS THAT SHE HAS BEEN WORKING WITH THERAPY AND HAS NOT REFUSED THERAPY SESSSIONS BUT STATES THERAPY IS NOT GETTING HER UP AND OUT OF BED. CM INSTRUCTED PT TO SPECIFICALLY REQUEST TO BE UP AND WALKING AND OUT OF BED MUCH POSSIBLE. PT REPORTS UNDERSTANDING. CM DISCUSSED AVAILABILITY OF HOME HEALTH, REHAB SERVICES AND MEDICAL EQUIPMENT. PT CONTINUES TO REFUSE PLACEMENT IN LONG TERM FACILITY,AND HOME HEALTH. PT HAS NO INSURANCE TO COVER INPATIENT REHAB OR REHAB IN LONG TERM FACILITY. PT STATES SHE HAS HER DAUGHTER AND NUMEROUS NIECES AND NEPHEWS THAT WILL BE ASSISTING IN THE HOME AND THAT FAMILY WILLTRANSPORT HER HOME AT DISCHARGE. CM EXPLAINED THAT PT WILL NEED TO SPEAK TO HER FAMILY AND CONFIRM CARE ARRANGEMENTS PRIOR TO DISCHARGE. PT STATES SHE WILL SPEAK TO HER FAMILY. CM TO FOLLOW AND ASSIST NEEDED. SILVINA NGUYEN OF [facility] TO MEET WITH PT TODAY AND PROVIDE DIALYSIS SCHEDULE FOR [facility]. PT CONTINUES TO DECLINE HOME HEALTH OR PLACEMENT IN LONG TERM FACILITY STATING FAMILY WILL BE PROVIDING HER CARE AT HOME. Balwinder Gomez, CASE MANAGEMENT DCP- Discharge Planning Updated by [id number]: Danette Ochoa on 09/28/18 9:[address] RECEIVED A CALL FROM SILVINA NGUYEN, [facility]ICAL [facility]. SHE STATED THAT [facility] HAS DECIDED TO ACCEPT THE PATIENT FOR DIALYSIS, BUT BEING THAT THIS IS A HOLIDAY WEEKEND, THE CHAIRS ARE ALL FULL AND THEY WILL NOT BE ABLE TO TAKE THE PATIENT FOR START UNTIL 10-05. THE PATIENT WILL NEED TO STAY AND DIALYZE HERE THROUGH THURSDAY. DEREK WILL RELAY THIS INFORMATION TO THE PATIENT. DCP- Discharge Planning Updated by [id number]: Balwinder Gomez on 09/22/18 4:[address] Patient Name: STACY DAVIS Admission Status: Elective Accout number: [id number] Admission Date: 09-14-2018 : 1955 Admission Diagnosis:WEAKNESS Attending: JAIMIE JENSEN Current LOS: 8 Anticipated DC Date: 09-23-2018 Planned Disposition: Home Primary Insurance: MEDICAID [place] Discharge Planning Comments: CM RECEIVED ORDER FOR HOME HEALTH. CM MET WITH PT IN ROOM TO DISCUSS DISCHARGE PLANNING AND NEEDS. PT REPORTS LIVING AT HOME INDEPENDENTLY WITH AND ALONE. PT REPORTS HAVING FAMILY ASSISTANCE AT HOME IF NEEDED. PT HAS CANE AND WALKER WITH WHEELS SEAT AND BRAKES. [facility]. PT HAS NO OUTSIDE SERVICES ASSISTING IN THE HOME. CM DISCUSSED AVAILABILITY OF HOME HEALTH, REHAB SERVICES AND MEDICAL EQUIPMENT. PT DENIES DISCHARGE NEEDS, DECLINED HOME HEALTH. PT REPORTS HER DAUGHTER WILL PICK HER UP FOR DISCHARGE HOME. CM INFORMED RENAL NURSE AIME OF PT'S REFUSAL OF HOME HEALTH SERVICES. RN BRICE [place] NOTIFIED SILVINA OF [facility] OF ORDER FOR OUTPATIENT DIALYSIS CLINIC ARRANGEMENT NEEDED. PT REPORTS THAT SHE USES THE MEDICAID TRANSPORT BUS FOR MEDICAL APPOINTMENTS AND WILL ARRANGE THEM FOR OUTPATIENT DIALYSIS. PT PLANS TO DISCHARGE HOME ALONE, HAS ASSISTANCE OF FAMILY IF NEEDED, DECLINED HOME HEALTH. Buddhist Monk: Balwinder Gomez DCPIA - Discharge Planning Initial Assessment Updated by [id number]: Balwinder Gomez on 09/28/18 12:18 pm * Is the patient Alert and Oriented? Yes * How many steps to enter\exit or inside your home? * PCP DR. GUZMAN IN [place] * Pharmacy [facility] IN [place] * Preadmission Environment Home Alone * ADLs Independent * Equipment Other * Other Equipment WALKER WITH 4 WHEELS, SEAT AND BRAKES [employer] - PREFERRED PROVIDER * List name and contact numbers for known caregivers / representatives who currently or will assist patient after discharge: FRITZ PERALES, DTR, ALISSA DRISCOLL, DTR, * Verbal permission to speak to the caregivers and representatives has been obtained from the patient. N/A * Community resources currently utilized None * Please name any agencies selected above. NONE * Additional services required to return to the preadmission environment? Yes * Can the patient safely return to the preadmission environment? Yes * Has this patient been hospitalized within the prior 30 days at any hospital? Yes Coverage Notice Reviewer: [id number] Rafael Gomez Notice Issued Date-Time: 09/29/2018 16:00 Notice Type: Patient Choice Letter Notice Delivered To: Patient Relationship to Patient: Personnel Clerk Name: Delivery Method: HAND - Hand Delivered Isabel Days: Prior Verbal Notification: Recipient Understood Notice: Yes Recipient Signature: Yes Med Rec Note Co-signed by Attending: Coverage Notice Comment: NO [facility] PROVIDER PREFERENCE- Last DP export: 10/02/18 3:11 Patient Name: STACY DAVIS Page [id number] at 1902 All edits/amendments must be made on the electronic document DICTATION DATE: 10/03/181901 MILK HAULER: TAMAR 10/03/181901 RPT#: [id number] DC DATE:10/02/18 STATUS: DIS IN [facility] [address] [place] [address] END OF REPORT
--- NOTE | ~2018-09-14 | MORECARE ---
CASE MANAGEMENT DISCHARGE SUMMARY PATIENT: STACY DAVIS UNIT: [id number] ADM DATE: 09/14/18 AGE: 62 : 53 SEX: F ROOM/BED: D.2131 AUTHOR: KERRI,DOC PHYSICIAN: REFERRING PHYSICIAN: JAIMIE JENSEN MD DATE OF SERVICE: 09/28/18 Discharge Plan Patient Name: STACY DAVIS Facility: [facility]:[place] : 1955 Planned Disposition: Home Anticipated Discharge Date: 10/02/18 Discharge Date: Expected LOS: 18 Initial Reviewer: [id number] Initial Review Date: 09/14/2018 Generated: 09/28/18 1:19 pm Comments DCP- Discharge Planning Updated by [id number]: Balwinder Gomez on 09/28/18 11:[address] Patient Name: STACY DAVIS Encounter No: [id number] : 1955 Primary Insurance: MEDICAID [place] Anticipated DC Date: 10-02-2018 Planned Disposition: Home DCP follow-up note: CM RECEIVED CALL FROM ALISSA DELGADILLO, PT'S DAUGHTER, ; ALISSA REPORTS THAT PT IS NOT ABLE TO WALK, WILL NOT GO TO A [facility] FACILITY AND WILL NOT LET HOME HEALTH COME TO HER HOUSE. PT IS PLANNING TO STAY WITH PT'S DAUGHTER, ABDELRAHMAN'S SISTER, AT DISCHARGE. ALISSA REPORTS THAT PT HAS NO POWER OF RECREATION FACILITIES SUPERVISOR FOR ANY FAMILY MEMBER AND APPEARS TO BE IN HER RIGHT MIND AT THIS TIME. CM EXPLAINED THAT IF PT IS REFUSING ALL HOME ASSISTANCE OR REHAB SERVICES, CM IS NOT ABLE TO ARRANGE SERVICES AND IF PT IS NOT MAKING SAFE DECISIONS, ADULT PROTECTIVE SERVICES MAY BE CALLED BY CM. ALISSA REPORTS THAT SILVINA OF [facility]ULT [facility] CAME OUT TO PT'S HOME PRIOR TO PT'S ADMISSION AND MET WITH PT IN THE HOME. ALISSA WILL SPEAK TO PT AND ENCOURAGE HER TO ACCEPT HOME HEALTH OR [facility] FACILITY PLACMENT FOR BUILDING CODE ADMINISTRATOR CARE PT HAS MEDICAID ONLY. CM SPOKE TO PT IN ROOM TO DISCUSS DISCHARGE NEEDS AND PLANNING. CM WENT OVER PT'S THERAPY NOTES AND POINTED OUT PT'S INABILITY TO GET OUT OF BED AND EVEN GET AROUND THE ROOM WITHOUT ASSITANCE; CM INFORMED PT THAT SHE NEEDS TO BE DOING MORE AND NEEDS TO BE UP AND ABLE TO SIT IN CHAIR FOR THREE HOURS OF DIALYSIS WELL TRANSFERRING FOR TRANSPORTATION. PT REPORTS THAT SHE HAS BEEN WORKING WITH THERAPY AND HAS NOT REFUSED THERAPY SESSSIONS BUT STATES THERAPY IS NOT GETTING HER UP AND OUT OF BED. CM INSTRUCTED PT TO SPECIFICALLY REQUEST TO BE UP AND WALKING AND OUT OF BED MUCH POSSIBLE. PT REPORTS UNDERSTANDING. CM DISCUSSED AVAILABILITY OF HOME HEALTH, REHAB SERVICES AND MEDICAL EQUIPMENT. PT CONTINUES TO REFUSE PLACEMENT IN [facility] FACILITY,AND HOME HEALTH. PT HAS NO INSURANCE TO COVER INPATIENT REHAB OR REHAB IN [facility]AC[facility]. PT STATES SHE HAS HER DAUGHTER AND NUMEROUS NIECES AND NEPHEWS THAT WILL BE ASSISTING IN THE HOME AND THAT FAMILY WILLTRANSPORT HER HOME AT DISCHARGE. CM EXPLAINED THAT PT WILL NEED TO SPEAK TO HER FAMILY AND CONFIRM CARE ARRANGEMENTS PRIOR TO DISCHARGE. PT STATES SHE WILL SPEAK TO HER FAMILY. CM TO FOLLOW AND ASSIST NEEDED. SILVINA NGUYEN OF [facility] TO MEET WITH PT TODAY AND PROVIDE DIALYSIS SCHEDULE FOR [facility]. PT CONTINUES TO DECLINE HOME HEALTH OR PLACEMENT IN [facility] FACILITY STATING FAMILY WILL BE PROVIDING HER CARE AT HOME. Balwinder Gomez, CASE MANAGEMENT DCP- Discharge Planning Updated by [id number]: Danette Ochoa on 09/28/18 9:[address] RECEIVED A CALL FROM SILVINA NGUYEN, CL[facility]ICAL [facility]. SHE STATED THAT [facility] HAS DECIDED TO ACCEPT THE PATIENT FOR DIALYSIS, BUT BEING THAT THIS IS A HOLIDAY WEEKEND, THE CHAIRS ARE ALL FULL AND THEY WILL NOT BE ABLE TO TAKE THE PATIENT FOR START UNTIL THURSDAY, 10-05. THE PATIENT WILL NEED TO STAY AND DIALYZE HERE THROUGH THURSDAY. DEREK WILL RELAY THIS INFORMATION TO THE PATIENT. DCP- Discharge Planning Updated by [id number]: Balwinder Gomez on 09/22/18 4:[address] Patient Name: STACY DAVIS Admission Status: Elective Accout number: [id number] Admission Date: 09-14-2018 : 1955 Admission Diagnosis:WEAKNESS Attending: JAIMIE JENSEN Current LOS: 8 Anticipated DC Date: 09-23-2018 Planned Disposition: Home Primary Insurance: MEDICAID [place] Discharge Planning Comments: CM RECEIVED ORDER FOR HOME HEALTH. CM MET WITH PT IN ROOM TO DISCUSS DISCHARGE PLANNING AND NEEDS. PT REPORTS LIVING AT HOME INDEPENDENTLY WITH AND ALONE. PT REPORTS HAVING FAMILY ASSISTANCE AT HOME IF NEEDED. PT HAS CANE AND WALKER WITH WHEELS SEAT AND BRAKES. PT PREFERS [facility] FOR MEDICAL EQUIPMENT. PT HAS NO OUTSIDE SERVICES ASSISTING IN THE HOME. CM DISCUSSED AVAILABILITY OF HOME HEALTH, REHAB SERVICES AND MEDICAL EQUIPMENT. PT DENIES DISCHARGE NEEDS, DECLINED HOME HEALTH. PT REPORTS HER DAUGHTER WILL PICK HER UP FOR DISCHARGE HOME. CM INFORMED RENAL NURSE AIME OF PT'S REFUSAL OF HOME HEALTH SERVICES. RN BRICE [facility] NOTIFIED SILVINA OF [facility] OF ORDER FOR OUTPATIENT DIALYSIS CLINIC ARRANGEMENT NEEDED. PT REPORTS THAT SHE USES THE MEDICAID TRANSPORT BUS FOR MEDICAL APPOINTMENTS AND WILL ARRANGE THEM FOR OUTPATIENT DIALYSIS. PT PLANS TO DISCHARGE HOME ALONE, HAS ASSISTANCE OF FAMILY IF NEEDED, DECLINED HOME HEALTH. Printing Shop Supervisor: Balwinder Gomez AZPIA - Discharge Planning Initial Assessment Updated by [id number]: Balwinder Gomez on 09/28/18 12:18 pm * Is the patient Alert and Oriented? Yes * How many steps to enter\exit or inside your home? * PCP DR. GUZMAN IN [place] * Pharmacy [facility] IN [place] * Preadmission Environment Home Alone * ADLs Independent * Equipment Other * Other Equipment WALKER WITH 4 WHEELS, SEAT AND BRAKES [facility] - PREFERRED PROVIDER * List name and contact numbers for known caregivers / representatives who currently or will assist patient after discharge: FRITZ PERALES, DTR, ALISSA DRISCOLL, DTR, * Verbal permission to speak to the caregivers and representatives has been obtained from the patient. N/A * Community resources currently utilized None * Please name any agencies selected above. NONE * Additional services required to return to the preadmission environment? Yes * Can the patient safely return to the preadmission environment? Yes * Has this patient been hospitalized within the prior 30 days at any hospital? Yes Last DP export: 09/28/18 11:06 Patient Name: STACY DAVIS Page 47921 at 1220 All edits/amendments must be made on the electronic document DICTATION DATE: 09/28/18 121 SENIOR BUSINESS DEVELOPMENT MANAGER: TAMAR 09/28/18 1219 RPT#: [id number] [place] DATE: STATUS: ADM IN [facility] [address] [place] [address] END OF REPORT
--- NOTE | ~2018-09-14 | MORECARE ---
CASE MANAGEMENT DISCHARGE SUMMARY PATIENT: STACY DAVIS UNIT: [id number] ADM DATE: 09/14/18 AGE: 62 : 53 SEX: F ROOM/BED: D.2131 AUTHOR: KERRI,DOC PHYSICIAN: REFERRING PHYSICIAN: JAIMIE JENSEN MD DATE OF SERVICE: 10/02/18 Discharge Plan Patient Name: STACY DAVIS Facility: [facility]:[place] : 1955 Planned Disposition: Home Anticipated Discharge Date: 10/02/18 Discharge Date: Expected LOS: 18 Initial Reviewer: [id number] Initial Review Date: 09/14/2018 Generated: 10/02/18 5:11 pm Comments DCP- Discharge Planning Updated by [id number]: Demetria Sams on 10/02/18 3:[address] LATE ENTRY 1300 PATIENT FOR DISCHARGE TO HOME TODAY. PRIMARY NURSE SPOKE WITH CM REGARDING TRANSPORTATION TO HOME. PATIENT LIVES IN [place], [place]. SHE IS A TWO MAN ASSIST TO GET OOB. SHE IS UNABLE TO ASSIST ANY WITH SIT TO STAND. PATIENT REPORTEDLY PLACES STAFF AT RISK TRYING TO LIFT OOB TO CHAIR. SHE HAS SEVERE LE EDEMA. HAD TWO OPEN WOUNDS ON LEFT LOWER LEG. PRIMARY NURSE TO EVAL AND REDRESS. PATIENT WEIGHS 273 LBS. TRANSPORT IS APPROXIAMTELY 2 HRS. WOULD NOT TOLERATE SITTING IN VECHICLE FOR 2 HOURS. CM SPOKE WITH THE PRIMARY NURSE AND CALLED PATIENT'S DAUGHTER, FRITZ PERALES, WHO WAS ATTEMPTING TO FIND SOME ASSISTANCE FOR TRANSPORTATION POST DISCHARGE. DISCUSS REGARDING SAFE DISCHARGE TO HOME. PCS FORM COMPLETED FOR DISCHARGE TO HOME VIA [facility].. DCP- Discharge Planning Updated by [id number]: Balwinder Gomez on 09/29/18 2:[address] Patient Name: STACY DAVIS Encounter No: [id number] : 1955 Primary Insurance: MEDICAID [place] Anticipated DC Date: 10-02-2018 Planned Disposition: Home WITH HOME HEALTH External Planned Provider: [facility] DCP follow-up note: CM SPOKE TO PT IN ROOM WHO REPORTS SHE IS GOING TO GO HOME WITH FAMILY SUPPORT AND TO SPEAK TO HER DAUGHTER KARL PERALES. PT WILL ACCEPT HOME HEALTH AND HAS NO PREFERENCE ON HOME HEALTH PROVIDER, CHOICE SIGNED. PT REFUSES [facility] F[facility]ILITY PLACEMENT. CM SPOKE TO KARL PERALES, DAUGHTER, . CM REVIEWED THERAPY NOTES AND EMPHASIZED PT'S LOW LEVEL OF FUNCTIONING. KARL REPORTS HAVING HERSELF AND OTHER FAMILY TO ASSIST PT AT HOME, THEY HAVE WHEELCHAIR AND WILL BE TAKING PT TO AND FROM DIALYSIS. KARL HAS CONTACTED [facility] AND STARTED PROCESS TO REQUEST HOME MEDICAID AIDE SERVICE TO ALSO ASSIST WITH PT'S CARE. KARL REPORTS SHE WILL ARRANGE FAMILY TO [place] PT ON DISCHARGE THURSDAY. THEY HAVE NO PREFERENCE ON HOME HEALTH SERVICES. CM CALLED [facility] IN [place], , SPOKE TO PEDRO WHO REPORTS THEY CAN ACCEPT AND ADMIT ON THURSDAY OR THURSDAY DEPENDING ON DISCHARGE DAY. CM FAXED REFERRAL TO [facility] IN [facility] AT [phone]. PT WILL DISCHARGE TO HOME OF DAUGHTER, KARL PERALES, [address] [place] [address]. [phone]. KARL'S NUMBER IS [phone]. FAX DISCHARGE INFORMATION TO [facility], . NOTIFY [facility] OF DISCHAGE AT [phone]. Balwinder Gomez, CASE MANAGEMENT DCP- Discharge Planning Updated by [id number]: Balwinder Gomez on 09/28/18 11:[address] Patient Name: STACY DAVIS Encounter No: [id number] : 1955 Primary Insurance: MEDICAID [facility] DC Date: 10-02-2018 Planned Disposition: Home DCP follow-up note: CM RECEIVED CALL FROM ALISSA LEONA, PT'S DAUGHTER, ; ALISSA REPORTS THAT PT IS NOT ABLE TO WALK, WILL NOT GO TO A [facility] FACILITY AND WILL NOT LET HOME HEALTH COME TO HER HOUSE. PT IS PLANNING TO STAY WITH PT'S DAUGHTER, ABDELRAHMAN'S SISTER, AT DISCHARGE. ALISSA REPORTS THAT PT HAS NO POWER OF PATIENT CARE ASSOCIATE FOR ANY FAMILY MEMBER AND APPEARS TO BE IN HER RIGHT MIND AT THIS TIME. CM EXPLAINED THAT IF PT IS REFUSING ALL HOME ASSISTANCE OR REHAB SERVICES, CM IS NOT ABLE TO ARRANGE SERVICES AND IF PT IS NOT MAKING SAFE DECISIONS, ADULT PROTECTIVE SERVICES MAY BE CALLED BY CM. ALISSA REPORTS THAT SILVINA OF [facility]ULT [facility] CAME OUT TO PT'S HOME PRIOR TO PT'S ADMISSION AND MET WITH PT IN THE HOME. ALISSA WILL SPEAK TO PT AND ENCOURAGE HER TO ACCEPT HOME HEALTH OR [facility] FACILITY PLACMENT FOR ADULT SECONDARY EDUCATION INSTRUCTOR CARE PT HAS MEDICAID ONLY. CM SPOKE TO PT IN ROOM TO DISCUSS DISCHARGE NEEDS AND PLANNING. CM WENT OVER PT'S THERAPY NOTES AND POINTED OUT PT'S INABILITY TO GET OUT OF BED AND EVEN GET AROUND THE ROOM WITHOUT ASSITANCE; CM INFORMED PT THAT SHE NEEDS TO BE DOING MORE AND NEEDS TO BE UP AND ABLE TO SIT IN CHAIR FOR THREE HOURS OF DIALYSIS WELL TRANSFERRING FOR TRANSPORTATION. PT REPORTS THAT SHE HAS BEEN WORKING WITH THERAPY AND HAS NOT REFUSED THERAPY SESSSIONS BUT STATES THERAPY IS NOT GETTING HER UP AND OUT OF BED. CM INSTRUCTED PT TO SPECIFICALLY REQUEST TO BE UP AND WALKING AND OUT OF BED MUCH POSSIBLE. PT REPORTS UNDERSTANDING. CM DISCUSSED AVAILABILITY OF HOME HEALTH, REHAB SERVICES AND MEDICAL EQUIPMENT. PT CONTINUES TO REFUSE PLACEMENT IN [facility]AC[facility],AND HOME HEALTH. PT HAS NO INSURANCE TO COVER INPATIENT REHAB OR REHAB IN [facility]. PT STATES SHE HAS HER DAUGHTER AND NUMEROUS NIECES AND NEPHEWS THAT WILL BE ASSISTING IN THE HOME AND THAT FAMILY WILLTRANSPORT HER HOME AT DISCHARGE. CM EXPLAINED THAT PT WILL NEED TO SPEAK TO HER FAMILY AND CONFIRM CARE ARRANGEMENTS PRIOR TO DISCHARGE. PT STATES SHE WILL SPEAK TO HER FAMILY. CM TO FOLLOW AND ASSIST NEEDED. SILVINA NGUYEN OF [facility] TO MEET WITH PT TODAY AND PROVIDE DIALYSIS SCHEDULE FOR [facility]. PT CONTINUES TO DECLINE HOME HEALTH OR PLACEMENT IN [facility] F[facility] STATING FAMILY WILL BE PROVIDING HER CARE AT HOME. Balwinder Gomez, CASE MANAGEMENT DCP- Discharge Planning Updated by [id number]: Danette Ochoa on 09/28/18 9:[address] RECEIVED A CALL FROM SILVINA NGUYEN, CL[facility]ICAL [facility]. SHE STATED THAT [place] HAS DECIDED TO ACCEPT THE PATIENT FOR DIALYSIS, BUT BEING THAT THIS IS A HOLIDAY WEEKEND, THE CHAIRS ARE ALL FULL AND THEY WILL NOT BE ABLE TO TAKE THE PATIENT FOR START UNTIL THURSDAY, 10-05. THE PATIENT WILL NEED TO STAY AND DIALYZE HERE THROUGH THURSDAY. DEREK WILL RELAY THIS INFORMATION TO THE PATIENT. DCP- Discharge Planning Updated by [id number]: Balwinder Gomez on 09/22/18 4:[address] Patient Name: STACY DAVIS Admission Status: Elective Accout number: [id number] Admission Date: 09-14-2018 : 1955 Admission Diagnosis:WEAKNESS Attending: JAIMIE JENSEN Current LOS: 8 Anticipated DC Date: 09-23-2018 Planned Disposition: Home Primary Insurance: MEDICAID [place] Discharge Planning Comments: CM RECEIVED ORDER FOR HOME HEALTH. CM MET WITH PT IN ROOM TO DISCUSS DISCHARGE PLANNING AND NEEDS. PT REPORTS LIVING AT HOME INDEPENDENTLY WITH AND ALONE. PT REPORTS HAVING FAMILY ASSISTANCE AT HOME IF NEEDED. PT HAS CANE AND WALKER WITH WHEELS SEAT AND BRAKES. PT PREFERS [facility] FOR MEDICAL EQUIPMENT. PT HAS NO OUTSIDE SERVICES ASSISTING IN THE HOME. CM DISCUSSED AVAILABILITY OF HOME HEALTH, REHAB SERVICES AND MEDICAL EQUIPMENT. PT DENIES DISCHARGE NEEDS, DECLINED HOME HEALTH. PT REPORTS HER DAUGHTER WILL PICK HER UP FOR DISCHARGE HOME. CM INFORMED RENAL NURSE AIME OF PT'S REFUSAL OF HOME HEALTH SERVICES. RN HOUSE NOTIFIED SILVINA OF [facility] OF ORDER FOR OUTPATIENT DIALYSIS CLINIC ARRANGEMENT NEEDED. PT REPORTS THAT SHE USES THE MEDICAID TRANSPORT BUS FOR MEDICAL APPOINTMENTS AND WILL ARRANGE THEM FOR OUTPATIENT DIALYSIS. PT PLANS TO DISCHARGE HOME ALONE, HAS ASSISTANCE OF FAMILY IF NEEDED, DECLINED HOME HEALTH. Branch Maker: Balwinder Gomez [facility] - Discharge Planning Initial Assessment Updated by [id number]: Balwinder Gomez on 09/28/18 12:18 pm * Is the patient Alert and Oriented? Yes * How many steps to enter\exit or inside your home? * PCP DR. GUZMAN IN [place] * Pharmacy [facility] IN [place] * Preadmission Environment Home Alone * ADLs Independent * Equipment Other * Other Equipment WALKER WITH 4 WHEELS, SEAT AND BRAKES [facility] - PREFERRED PROVIDER * List name and contact numbers for known caregivers / representatives who currently or will assist patient after discharge: FRITZ PERALES DTR, MICHAEL SHANKARR, * Verbal permission to speak to the caregivers and representatives has been obtained from the patient. N/A * Community resources currently utilized None * Please name any agencies selected above. NONE * Additional services required to return to the preadmission environment? Yes * Can the patient safely return to the preadmission environment? Yes * Has this patient been hospitalized within the prior 30 days at any hospital? Yes Coverage Notice Reviewer: [id number] Rafael Gomez Notice Issued Date-Time: 09/29/2018 16:00 Notice Type: Patient Choice Letter Notice Delivered To: Patient Relationship to Patient: Airplane Flight Attendant Supervisor Name: Delivery Method: HAND - Hand Delivered Isabel Days: Prior Verbal Notification: Recipient Understood Notice: Yes Recipient Signature: Yes Med Rec Note Co-signed by Attending: Coverage Notice Comment: NO [facility] PROVIDER PREFERENCE- Last DP export: 09/29/18 2:49 Patient Name: STACY DAVIS Page 57904 at 1612 All edits/amendments must be made on the electronic document DICTATION DATE: 10/02/181610 LABORER HIGH DENSITY PRESS: TAMAR 10/02/181610 RPT#: [id number] DC DATE: STATUS: ADM IN [facility] [address] [place] [address] END OF REPORT
--- NOTE | ~2018-09-14 | MORECARE ---
CASE MANAGEMENT DISCHARGE SUMMARY PATIENT: STACY DAVIS UNIT: [id number] ADM DATE: 09/14/18 AGE: 62 : 53 SEX: F ROOM/BED: D.2131 AUTHOR: KERRI,DOC PHYSICIAN: REFERRING PHYSICIAN: JAIMIE JENSEN MD DATE OF SERVICE: 10/04/18 Discharge Plan Patient Name: STACY DAVIS Facility: [facility]:[place] : 1955 Planned Disposition: Home Anticipated Discharge Date: 10/02/18 Discharge Date: 10/02/2018 Expected LOS: 18 Initial Reviewer: [email or web address] Initial Review Date: 09/14/2018 Generated: 10/04/18 10:53 am Comments DCP- Discharge Planning Updated by [email or web address]: Demetria Sams on 10/03/18 5:[address] TC TO [facility] TO ADVISE OF DISCHARGE, SPOKE WITH ANSWERING SERVICE, LUIS. REC CB FROM PRIYA GILLIAM. FAXED DISCHARGE MED LIST AND DISCHARGE INSTRUCTION TO [phone]. PATIENT DAUGHTER DID CALL TODAY TO THE UNIT TO SAYS SHE DID NOT THINK SHE COULD PROVIDE THE CARE THE PATIENT NEEDED. SHE DOES NOT HAVE TRANSPORTATION FOR HD. SHE WILL BE CALLING PATIENT MD IN THE AM. CM ADVISED MANE THE HOME HEALTH NURSE. DCP- Discharge Planning Updated by [id number]: Demetria Sams on 10/02/18 3:[address] LATE ENTRY 1300 PATIENT FOR DISCHARGE TO HOME TODAY. PRIMARY NURSE SPOKE WITH BRICE REGARDING TRANSPORTATION TO HOME. PATIENT LIVES IN [place], [place]. SHE IS A TWO MAN ASSIST TO GET OOB. SHE IS UNABLE TO ASSIST ANY WITH SIT TO STAND. PATIENT REPORTEDLY PLACES STAFF AT RISK TRYING TO LIFT OOB TO CHAIR. SHE HAS SEVERE LE EDEMA. HAD TWO OPEN WOUNDS ON LEFT LOWER LEG. PRIMARY NURSE TO EVAL AND REDRESS. PATIENT WEIGHS 273 LBS. TRANSPORT IS APPROXIAMTELY 2 HRS. WOULD NOT TOLERATE SITTING IN VECHICLE FOR 2 HOURS. BRICE SPOKE WITH THE PRIMARY NURSE AND CALLED PATIENT'S DAUGHTER, FRITZ PERALES, WHO WAS ATTEMPTING TO FIND SOME ASSISTANCE FOR TRANSPORTATION POST DISCHARGE. DISCUSS REGARDING SAFE DISCHARGE TO HOME. PCS FORM COMPLETED FOR DISCHARGE TO HOME VIA [facility].. DCP- Discharge Planning Updated by [email or web address]: Balwinder Gomez on 09/29/18 2:[address] Patient Name: STACY DAVIS Encounter No: [id number] : 1955 Primary Insurance: MEDICAID [place] Anticipated DC Date: 10-02-2018 Planned Disposition: Home WITH HOME HEALTH External Planned Provider: [facility] DCP follow-up note: CM SPOKE TO PT IN ROOM WHO REPORTS SHE IS GOING TO GO HOME WITH FAMILY SUPPORT AND TO SPEAK TO HER DAUGHTER KARL PERALES. PT WILL ACCEPT HOME HEALTH AND HAS NO PREFERENCE ON HOME HEALTH PROVIDER, CHOICE SIGNED. PT REFUSES [facility] FACILITY PLACEMENT. CM SPOKE TO KARL PERALES, DAUGHTER, . CM REVIEWED THERAPY NOTES AND EMPHASIZED PT'S LOW LEVEL OF FUNCTIONING. KARL REPORTS HAVING HERSELF AND OTHER FAMILY TO ASSIST PT AT HOME, THEY HAVE WHEELCHAIR AND WILL BE TAKING PT TO AND FROM DIALYSIS. KARL HAS CONTACTED [facility] AND STARTED PROCESS TO REQUEST HOME MEDICAID AIDE SERVICE TO ALSO ASSIST WITH PT'S CARE. KARL REPORTS SHE WILL ARRANGE FAMILY TO PERSONAL CARE AIDE PT ON DISCHARGE THURSDAY. THEY HAVE NO PREFERENCE ON HOME HEALTH SERVICES. CM CALLED [facility] IN [place], , SPOKE TO PEDRO WHO REPORTS THEY CAN ACCEPT AND ADMIT ON THURSDAY OR THURSDAY DEPENDING ON DISCHARGE DAY. CM FAXED REFERRAL TO [facility] AT [phone]. PT WILL DISCHARGE TO HOME OF DAUGHTER, KARL PERALES, [address] [place] [address]. [phone]. KARL'S NUMBER IS [phone]. FAX DISCHARGE INFORMATION TO [facility], . NOTIFY [facility] OF DISCHAGE AT [phone]. Balwinder Gomez, CASE MANAGEMENT DCP- Discharge Planning Updated by [id number]: Balwinder Gomez on 09/28/18 11:[address] Patient Name: STACY DAVIS Encounter No: [id number] : 1955 Primary Insurance: MEDICAID [place] Anticipated DC Date: 10-02-2018 Planned Disposition: Home DCP follow-up note: CM RECEIVED CALL FROM ALISSA DELGADILLO, PT'S DAUGHTER, ; ALISSA REPORTS THAT PT IS NOT ABLE TO WALK, WILL NOT GO TO A [facility] FACILITY AND WILL NOT LET HOME HEALTH COME TO HER HOUSE. PT IS PLANNING TO STAY WITH PT'S DAUGHTER, ABDELRAHMAN'S SISTER, AT DISCHARGE. ALISSA REPORTS THAT PT HAS NO POWER OF PRETZEL TWISTER FOR ANY FAMILY MEMBER AND APPEARS TO BE IN HER RIGHT MIND AT THIS TIME. CM EXPLAINED THAT IF PT IS REFUSING ALL HOME ASSISTANCE OR REHAB SERVICES, CM IS NOT ABLE TO ARRANGE SERVICES AND IF PT IS NOT MAKING SAFE DECISIONS, ADULT PROTECTIVE SERVICES MAY BE CALLED BY CM. ALISSA REPORTS THAT SILVINA OF [facility] CAME OUT TO PT'S HOME PRIOR TO PT'S ADMISSION AND MET WITH PT IN THE HOME. ALISSA WILL SPEAK TO PT AND ENCOURAGE HER TO ACCEPT HOME HEALTH OR [facility] FACILITY PLACMENT FOR ONCOLOGY NAVIGATOR CARE PT HAS MEDICAID ONLY. CM SPOKE TO PT IN ROOM TO DISCUSS DISCHARGE NEEDS AND PLANNING. CM WENT OVER PT'S THERAPY NOTES AND POINTED OUT PT'S INABILITY TO GET OUT OF BED AND EVEN GET AROUND THE ROOM WITHOUT ASSITANCE; CM INFORMED PT THAT SHE NEEDS TO BE DOING MORE AND NEEDS TO BE UP AND ABLE TO SIT IN CHAIR FOR THREE HOURS OF DIALYSIS WELL TRANSFERRING FOR TRANSPORTATION. PT REPORTS THAT SHE HAS BEEN WORKING WITH THERAPY AND HAS NOT REFUSED THERAPY SESSSIONS BUT STATES THERAPY IS NOT GETTING HER UP AND OUT OF BED. CM INSTRUCTED PT TO SPECIFICALLY REQUEST TO BE UP AND WALKING AND OUT OF BED MUCH POSSIBLE. PT REPORTS UNDERSTANDING. CM DISCUSSED AVAILABILITY OF HOME HEALTH, REHAB SERVICES AND MEDICAL EQUIPMENT. PT CONTINUES TO REFUSE PLACEMENT IN [facility] FACILITY,AND HOME HEALTH. PT HAS NO INSURANCE TO COVER INPATIENT REHAB OR REHAB IN [facility] FACILITY. PT STATES SHE HAS HER DAUGHTER AND NUMEROUS NIECES AND NEPHEWS THAT WILL BE ASSISTING IN THE HOME AND THAT FAMILY WILLTRANSPORT HER HOME AT DISCHARGE. CM EXPLAINED THAT PT WILL NEED TO SPEAK TO HER FAMILY AND CONFIRM CARE ARRANGEMENTS PRIOR TO DISCHARGE. PT STATES SHE WILL SPEAK TO HER FAMILY. CM TO FOLLOW AND ASSIST NEEDED. SILVINA NGUYEN OF [facility] TO MEET WITH PT TODAY AND PROVIDE DIALYSIS SCHEDULE FOR [facility]. PT CONTINUES TO DECLINE HOME HEALTH OR PLACEMENT IN [facility] FAC[facility] STATING FAMILY WILL BE PROVIDING HER CARE AT HOME. Balwinder Gomez, CASE MANAGEMENT DCP- Discharge Planning Updated by [id number]: Danette Ochoa on 09/28/18 9:[address] RECEIVED A CALL FROM SILVINA NGUYEN, CL[facility]. SHE STATED THAT [place] HAS DECIDED TO ACCEPT THE PATIENT FOR DIALYSIS, BUT BEING THAT THIS IS A HOLIDAY WEEKEND, THE CHAIRS ARE ALL FULL AND THEY WILL NOT BE ABLE TO TAKE THE PATIENT FOR START UNTIL 10-05. THE PATIENT WILL NEED TO STAY AND DIALYZE HERE THROUGH THURSDAY. DEREK WILL RELAY THIS INFORMATION TO THE PATIENT. DCP- Discharge Planning Updated by [id number]: Balwinder Gomez on 09/22/18 4:[address] Patient Name: STACY DAVIS Admission Status: Elective Accout number: [id number] Admission Date: 09-14-2018 : 1955 Admission Diagnosis:WEAKNESS Attending: JAIMIE JENSEN Current LOS: 8 Anticipated DC Date: 09-23-2018 Planned Disposition: Home Primary Insurance: MEDICAID [place] Discharge Planning Comments: CM RECEIVED ORDER FOR HOME HEALTH. CM MET WITH PT IN ROOM TO DISCUSS DISCHARGE PLANNING AND NEEDS. PT REPORTS LIVING AT HOME INDEPENDENTLY WITH AND ALONE. PT REPORTS HAVING FAMILY ASSISTANCE AT HOME IF NEEDED. PT HAS CANE AND WALKER WITH WHEELS SEAT AND BRAKES. [facility]. PT HAS NO OUTSIDE SERVICES ASSISTING IN THE HOME. CM DISCUSSED AVAILABILITY OF HOME HEALTH, REHAB SERVICES AND MEDICAL EQUIPMENT. PT DENIES DISCHARGE NEEDS, DECLINED HOME HEALTH. PT REPORTS HER DAUGHTER WILL PICK HER UP FOR DISCHARGE HOME. CM INFORMED RENAL NURSE AIME OF PT'S REFUSAL OF HOME HEALTH SERVICES. RN BRICE BOCA RATON NOTIFIED SILVINA OF [facility] OF ORDER FOR OUTPATIENT DIALYSIS CLINIC ARRANGEMENT NEEDED. PT REPORTS THAT SHE USES THE MEDICAID TRANSPORT BUS FOR MEDICAL APPOINTMENTS AND WILL ARRANGE THEM FOR OUTPATIENT DIALYSIS. PT PLANS TO DISCHARGE HOME ALONE, HAS ASSISTANCE OF FAMILY IF NEEDED, DECLINED HOME HEALTH. Railway Signalling Engineer: Balwinder Gomez [facility] - Discharge Planning Initial Assessment Updated by [id number]: Balwinder Gomez on 09/28/18 12:18 pm * Is the patient Alert and Oriented? Yes * How many steps to enter\exit or inside your home? * PCP DR. GUZMAN IN [place] * Pharmacy [facility] IN [place] * Preadmission Environment Home Alone * ADLs Independent * Equipment Other * Other Equipment WALKER WITH 4 WHEELS, SEAT AND BRAKES [employer] - PREFERRED PROVIDER * List name and contact numbers for known caregivers / representatives who currently or will assist patient after discharge: FRITZ PERALES, DTR, ALISSA DRISCOLL, DTR, * Verbal permission to speak to the caregivers and representatives has been obtained from the patient. N/A * Community resources currently utilized None * Please name any agencies selected above. NONE * Additional services required to return to the preadmission environment? Yes * Can the patient safely return to the preadmission environment? Yes * Has this patient been hospitalized within the prior 30 days at any hospital? Yes Coverage Notice Reviewer: [id number] Rafael Gomez Notice Issued Date-Time: 09/29/2018 16:00 Notice Type: Patient Choice Letter Notice Delivered To: Patient Relationship to Patient: [facility] Director Name: Delivery Method: HAND - Hand Delivered Isabel Days: Prior Verbal Notification: Recipient Understood Notice: Yes Recipient Signature: Yes Med Rec Note Co-signed by Attending: Coverage Notice Comment: NO [facility] PROVIDER PREFERENCE- Last DP export: 10/03/18 6:21 Patient Name: STACY DAVIS Page 54335 at 0953 All edits/amendments must be made on the electronic document DICTATION DATE: 10/04/18952 CDL TEAM TRUCK DRIVER: TAMAR 10/04/18952 RPT#: [id number] DC DATE:10/02/18 STATUS: DIS IN [facility] [address] [place] [address] END OF REPORT
--- NOTE | ~2018-09-14 | MORECARE ---
CASE MANAGEMENT DISCHARGE SUMMARY PATIENT: STACY DAVIS UNIT: [id number] ADM DATE: 09/14/18 AGE: 62 : 53 SEX: F ROOM/BED: D.2131 AUTHOR: KERRI,DOC PHYSICIAN: REFERRING PHYSICIAN: JAIMIE JENSEN MD DATE OF SERVICE: 09/28/18 Discharge Plan Patient Name: STACY DAVIS Facility: [facility]:[place] : 1955 Planned Disposition: Home Anticipated Discharge Date: 10/02/18 Discharge Date: Expected LOS: 18 Initial Reviewer: [email or web address] Initial Review Date: 09/14/2018 Generated: 09/28/18 1:06 pm Comments DCP- Discharge Planning Updated by [id number]: Danette Ochoa on 09/28/18 9:[address] RECEIVED A CALL FROM SILVINA NGUYEN [facility]. SHE STATED THAT [facility] HAS DECIDED TO ACCEPT THE PATIENT FOR DIALYSIS, BUT BEING THAT THIS IS A HOLIDAY WEEKEND, THE CHAIRS ARE ALL FULL AND THEY WILL NOT BE ABLE TO TAKE THE PATIENT FOR START UNTIL THURSDAY, 10-05. THE PATIENT WILL NEED TO STAY AND DIALYZE HERE THROUGH THURSDAY. DEREK WILL RELAY THIS INFORMATION TO THE PATIENT. DCP- Discharge Planning Updated by [id number]: Balwinder Gomez on 09/22/18 4:[address] Patient Name: STACY DAVIS Admission Status: Elective Accout number: [id number] Admission Date: 09-14-2018 : 1955 Admission Diagnosis:WEAKNESS Attending: JAIMIE JENSEN Current LOS: 8 Anticipated DC Date: 09-23-2018 Planned Disposition: Home Primary Insurance: MEDICAID [place] Discharge Planning Comments: CM RECEIVED ORDER FOR HOME HEALTH. CM MET WITH PT IN ROOM TO DISCUSS DISCHARGE PLANNING AND NEEDS. PT REPORTS LIVING AT HOME INDEPENDENTLY WITH AND ALONE. PT REPORTS HAVING FAMILY ASSISTANCE AT HOME IF NEEDED. PT HAS CANE AND WALKER WITH WHEELS SEAT AND BRAKES. PT PREFERS [facility] FOR MEDICAL EQUIPMENT. PT HAS NO OUTSIDE SERVICES ASSISTING IN THE HOME. CM DISCUSSED AVAILABILITY OF HOME HEALTH, REHAB SERVICES AND MEDICAL EQUIPMENT. PT DENIES DISCHARGE NEEDS, DECLINED HOME HEALTH. PT REPORTS HER DAUGHTER WILL PICK HER UP FOR DISCHARGE HOME. CM INFORMED RENAL NURSE AIME OF PT'S REFUSAL OF HOME HEALTH SERVICES. RN BRICE HOUSE NOTIFIED SILVINA OF [facility] OF ORDER FOR OUTPATIENT DIALYSIS CLINIC ARRANGEMENT NEEDED. PT REPORTS THAT SHE USES THE MEDICAID TRANSPORT BUS FOR MEDICAL APPOINTMENTS AND WILL ARRANGE THEM FOR OUTPATIENT DIALYSIS. PT PLANS TO DISCHARGE HOME ALONE, HAS ASSISTANCE OF FAMILY IF NEEDED, DECLINED HOME HEALTH. Production Support Developer: Balwinder Gomez [facility] - Discharge Planning Initial Assessment Updated by [id number]: Balwinder Gomez on 09/22/18 5:24 pm * Is the patient Alert and Oriented? Yes * How many steps to enter\exit or inside your home? * PCP DR. GUZMAN IN [place] * Pharmacy [facility] IN [place] * Preadmission Environment Home Alone * ADLs Independent * Equipment Other * Other Equipment WALKER WITH 4 WHEELS, SEAT AND BRAKES [employer] - PREFERRED PROVIDER * List name and contact numbers for known caregivers / representatives who currently or will assist patient after discharge: FRITZ PERALES, DTR, * Verbal permission to speak to the caregivers and representatives has been obtained from the patient. N/A * Community resources currently utilized None * Please name any agencies selected above. NONE * Additional services required to return to the preadmission environment? Yes * Can the patient safely return to the preadmission environment? Yes * Has this patient been hospitalized within the prior 30 days at any hospital? Yes Last DP export: 09/28/18 9:15 Patient Name: STACY DAVIS Page [phone] at 1206 All edits/amendments must be made on the electronic document DICTATION DATE: 09/28/18 1206 AEROSPACE ASSEMBLER: TAMAR 09/28/18 1206 RPT#: [id number] DC DATE: STATUS: ADM IN [facility] [address] [place] [address] END OF REPORT
[2018-09-14] MEDS ORDERED: NORCO 10-325 TA1 TAB PO (21:25)
[2018-09-14] MEDS ORDERED: ZYLOPRIM300 MG PO (21:25)
[2018-09-14] MEDS ORDERED: NORVASC10 MG PO (21:26)
[2018-09-14] MEDS ORDERED: HYDRALAZINE HCL25 MG PO (21:26)
[2018-09-14] MEDS ORDERED: COREG12.5 MG PO (21:26)
[2018-09-14] MEDS ORDERED: PROTONIX40 MG PO (21:27)
[2018-09-14 21:47] VITALS: BP 153/75
[2018-09-15] VITALS (7 sets, daily range): BP systolic 139–185; BP diastolic 71–87; Ht 175.3 cm; Wt 124.0 kg
[2018-09-15 06:49] LABS: BASOPHILS 0.5 % (0-2); EOSINOPHILS 9.6 % (0-7); HEMATOCRIT 23.8 % (36.0-48.0); HEMOGLOBIN 7.7 g/dL (12-16); IMMATURE GRANULOCYTES 0.6 % (0-5); LYMPHOCYTES 28.1 % (15-50); MCH 28.3 pg (26.0-34.0); MCHC 32.4 g/dL (31.0-37.0); MCV 87.5 fL (80.0-100.0); MEAN PLATELET VOLUME 9.4 fL (7.4-10.4); MONOCYTES 13.2 % (2-11); PLATELET COUNT 133 10x3/uL (130-400); RBC 2.72 10x6/uL (4.00-5.40); RDW 19.4 % (11.5-14.5); WBC 6.4 10x3/uL (4.8-10.8)
[2018-09-15 07:15] LABS: ALBUMIN 2.3 g/dL (3.4-5.0); ANION GAP 18.9 mmol/L (8-16); BILIRUBIN - TOTAL 0.29 mg/dL (0.2-1.3); CALCIUM 7.5 mg/dL (8.5-10.1); CARBON DIOXIDE 14.9 mmol/L (21.0-32.0); CREATININE - SERUM 4.4 mg/dL (0.6-1.3); POTASSIUM - SERUM 4.8 mmol/L (3.5-5.1); PROTEIN - SERUM 6.6 g/dL (6.4-8.2); URIC ACID 3.3 mg/dL (2.6-7.2)
[2018-09-15 16:25] LABS: % SATURATION 11 % (15-55); IRON 21 ug/dl (35-150); TOTAL IRON BIND CAPACITY 177 ug/dl (260-445); UNSAT IRON BIND CAPACITY 156 ug/dl (150-375)
[2018-09-15 17:33] LABS: CREATINE KINASE 370 UL (21-215); FERRITIN 278 ng/mL (3-244)
[2018-09-15 23:05] LABS: APTT 28.1 SECONDS (22.8-39.4); INR 1.11 (0.85-1.17); PROTIME 13.9 SECONDS (11.6-15.0)
[2018-09-15 23:14] LABS: D-DIMER-QUANTITATIVE 5.7 ug/mLFEU (0.20-0.54)
[2018-09-16 00:49] VITALS: BP 147/59
[2018-09-16 05:46] LABS: BASOPHILS 0.5 % (0-2); EOSINOPHILS 11.6 % (0-7); HEMOGLOBIN 7.8 g/dL (12-16); IMMATURE GRANULOCYTES 0.3 % (0-5); LYMPHOCYTES 22.8 % (15-50); MCH 28.6 pg (26.0-34.0); MCHC 32.5 g/dL (31.0-37.0); MCV 87.9 fL (80.0-100.0); MEAN PLATELET VOLUME 9.7 fL (7.4-10.4); MONOCYTES 18.1 % (2-11); NEUTROPHILS 46.7 % (40-80); PLATELET COUNT 147 10x3/uL (130-400); RBC 2.73 10x6/uL (4.00-5.40); RDW 19.5 % (11.5-14.5); WBC 6.1 10x3/uL (4.8-10.8)
[2018-09-16 05:58] VITALS: BP 167/62
[2018-09-16 06:05] LABS: ANION GAP 18.1 mmol/L (8-16); CALCIUM 7.6 mg/dL (8.5-10.1); CARBON DIOXIDE 17.1 mmol/L (21.0-32.0); CREATININE - SERUM 4.5 mg/dL (0.6-1.3); POTASSIUM - SERUM 5.2 mmol/L (3.5-5.1)
[2018-09-16 08:19] LABS: FOLATE (FOLIC ACID) - SERUM 5.7 ng/mL (>3.0)
[2018-09-16 08:54] VITALS: BP 150/60
[2018-09-16 09:01] LABS: APPEARANCE HAZY (CLEAR); COLOR YELLOW (YELLOW); NITRITE NEGATIVE (NEGATIVE); SPECIFIC GRAVITY 1.015 (1.005-1.020)
[2018-09-16 09:02] LABS: BACTERIA FEW /hpf (NONE SEEN); BILIRUBIN NEGATIVE (NEGATIVE); EPITHELIAL CELLS 0-5 /hpf (0-5); GLUCOSE NEGATIVE (NEGATIVE); KETONE NEGATIVE (NEGATIVE); MUCUS <1+ /lpf (NONE SEEN); PROTEIN 3+ mg/dL (NEGATIVE); RED CELLS - URINE 0-5 /hpf (0-5); UROBILINOGEN NORMAL (NORMAL); WHITE CELLS - URINE OCC /hpf (0-5)
[2018-09-16 10:50] VITALS: BP 107/68
[2018-09-16 14:14] VITALS: BP 130/64
[2018-09-16 19:00] VITALS: BP 157/59
[2018-09-17] VITALS (7 sets, daily range): BP systolic 168–188; BP diastolic 63–76
[2018-09-17 00:20] LABS: APPEARANCE HAZY (CLEAR); COLOR YELLOW (YELLOW); NITRITE NEGATIVE (NEGATIVE)
[2018-09-17 00:21] LABS: BACTERIA FEW /hpf (NONE SEEN); BILIRUBIN NEGATIVE (NEGATIVE); EPITHELIAL CELLS RARE /hpf (0-5); GLUCOSE NEGATIVE (NEGATIVE); KETONE NEGATIVE (NEGATIVE); PROTEIN TRACE mg/dL (NEGATIVE); UROBILINOGEN NORMAL (NORMAL)
[2018-09-17 00:32] LABS: CREATININE - URINE 109.9 mg/dL (30-125); PRO/CRE RATIO URINE 1.8 mg/g; PROTEIN - URINE 198.1 mg/dL (0.0-11.9)
[2018-09-17 06:27] LABS: ANION GAP 17.2 mmol/L (8-16); CALCIUM 7.5 mg/dL (8.5-10.1); CARBON DIOXIDE 15.7 mmol/L (21.0-32.0); CREATININE - SERUM 4.4 mg/dL (0.6-1.3); POTASSIUM - SERUM 4.9 mmol/L (3.5-5.1)
[2018-09-17 06:53] LABS: BASOPHILS 0.3 % (0-2); EOSINOPHILS 9.6 % (0-7); HEMATOCRIT 23.5 % (36.0-48.0); IMMATURE GRANULOCYTES 0.4 % (0-5); LYMPHOCYTES 28.8 % (15-50); MCH 28.2 pg (26.0-34.0); MCHC 31.9 g/dL (31.0-37.0); MCV 88.3 fL (80.0-100.0); NEUTROPHILS 42.9 % (40-80); PLATELET COUNT 153 10x3/uL (130-400); RBC 2.66 10x6/uL (4.00-5.40); RDW 19.4 % (11.5-14.5); WBC 6.8 10x3/uL (4.8-10.8)
[2018-09-17 06:57] LABS: HEMOGLOBIN 7.5 g/dL (12-16)
[2018-09-18 00:10] VITALS: BP 180/73
[2018-09-18 04:00] VITALS: BP 143/75
[2018-09-18 08:35] VITALS: BP 132/64
[2018-09-18 11:55] VITALS: BP 122/51
[2018-09-18 17:19] VITALS: BP 136/68
[2018-09-18 20:00] VITALS: BP 116/47
[2018-09-19 00:06] VITALS: BP 125/47
[2018-09-19 04:00] VITALS: BP 113/39
[2018-09-19 06:55] LABS: BASOPHILS 0.2 % (0-2); EOSINOPHILS 1.2 % (0-7); HEMATOCRIT 30.4 % (36.0-48.0); HEMOGLOBIN 9.8 g/dL (12-16); IMMATURE GRANULOCYTES 0.7 % (0-5); LYMPHOCYTES 18.4 % (15-50); MCHC 32.2 g/dL (31.0-37.0); MCV 86.9 fL (80.0-100.0); MONOCYTES 11.9 % (2-11); NEUTROPHILS 67.6 % (40-80); PLATELET COUNT 155 10x3/uL (130-400); RDW 18.9 % (11.5-14.5); WBC 8.2 10x3/uL (4.8-10.8)
[2018-09-19 07:11] LABS: ANION GAP 21.3 mmol/L (8-16); CALCIUM 7.4 mg/dL (8.5-10.1); CARBON DIOXIDE 15.8 mmol/L (21.0-32.0); CREATININE - SERUM 4.9 mg/dL (0.6-1.3); POTASSIUM - SERUM 5.1 mmol/L (3.5-5.1)
[2018-09-19 08:44] VITALS: BP 119/66
[2018-09-19 12:09] VITALS: BP 114/63
[2018-09-19 20:30] VITALS: BP 143/55
[2018-09-20 00:30] VITALS: BP 139/64
[2018-09-20 04:30] VITALS: BP 139/59
[2018-09-20 06:49] LABS: BASOPHILS 0.1 % (0-2); EOSINOPHILS 0.1 % (0-7); HEMATOCRIT 28.1 % (36.0-48.0); HEMOGLOBIN 9.1 g/dL (12-16); LYMPHOCYTES 18.8 % (15-50); MCH 28.3 pg (26.0-34.0); MCHC 32.4 g/dL (31.0-37.0); MCV 87.5 fL (80.0-100.0); MONOCYTES 10.6 % (2-11); NEUTROPHILS 69.4 % (40-80); PLATELET COUNT 152 10x3/uL (130-400); RBC 3.21 10x6/uL (4.00-5.40); RDW 18.7 % (11.5-14.5); WBC 6.9 10x3/uL (4.8-10.8)
[2018-09-20 07:01] LABS: ANION GAP 20.8 mmol/L (8-16); CALCIUM 7.1 mg/dL (8.5-10.1); CARBON DIOXIDE 15.6 mmol/L (21.0-32.0); CREATININE - SERUM 5.3 mg/dL (0.6-1.3); POTASSIUM - SERUM 5.4 mmol/L (3.5-5.1)
[2018-09-20 10:12] VITALS: BP 157/67
[2018-09-20 11:00] VITALS: BP 122/50
[2018-09-20 15:00] VITALS: BP 130/47
[2018-09-20 20:00] VITALS: BP 140/63
[2018-09-21 05:31] VITALS: BP 176/69
[2018-09-21 08:36] VITALS: BP 133/81
[2018-09-21 09:17] LABS: HEPATITIS C ANTIBODY 0.1 S/CO RAT (0.0-0.9)
[2018-09-21 12:16] VITALS: BP 133/61
[2018-09-21 14:39] LABS: ALBUMIN 2.4 g/dL (3.4-5.0); ANION GAP 20.6 mmol/L (8-16); BILIRUBIN - TOTAL 0.28 mg/dL (0.2-1.3); CARBON DIOXIDE 16.7 mmol/L (21.0-32.0); CREATININE - SERUM 5.5 mg/dL (0.6-1.3); MAGNESIUM - SERUM 1.9 mg/dL (1.8-2.4); POTASSIUM - SERUM 5.3 mmol/L (3.5-5.1); PROTEIN - SERUM 6.3 g/dL (6.4-8.2)
[2018-09-21 14:49] LABS: BASOPHILS 0.4 % (0-2); EOSINOPHILS 3.3 % (0-7); HEMOGLOBIN 8.6 g/dL (12-16); IMMATURE GRANULOCYTES 0.6 % (0-5); LYMPHOCYTES 17.1 % (15-50); MCH 28.1 pg (26.0-34.0); MCHC 31.9 g/dL (31.0-37.0); MCV 88.2 fL (80.0-100.0); MONOCYTES 18.4 % (2-11); NEUTROPHILS 60.2 % (40-80); PLATELET COUNT 128 10x3/uL (130-400); RBC 3.06 10x6/uL (4.00-5.40); RDW 18.8 % (11.5-14.5); WBC 7.2 10x3/uL (4.8-10.8)
[2018-09-21 15:12] LABS: CALCIUM 6.9 mg/dL (8.5-10.1)
[2018-09-21 21:09] VITALS: BP 123/45
[2018-09-22 01:23] VITALS: BP 124/47
[2018-09-22 03:11] LABS: HEPATITIS BE ANTIGEN Negative (Negative)
[2018-09-22 06:15] VITALS: BP 135/46
[2018-09-22 08:17] VITALS: BP 123/72
[2018-09-22 10:33] LABS: BASOPHILS 0.4 % (0-2); EOSINOPHILS 4.2 % (0-7); HEMATOCRIT 31.8 % (36.0-48.0); IMMATURE GRANULOCYTES 0.6 % (0-5); LYMPHOCYTES 15.5 % (15-50); MCH 29.2 pg (26.0-34.0); MCHC 32.7 g/dL (31.0-37.0); MCV 89.3 fL (80.0-100.0); MONOCYTES 13.7 % (2-11); NEUTROPHILS 65.6 % (40-80); RBC 3.56 10x6/uL (4.00-5.40)
[2018-09-22 10:46] LABS: HEMOGLOBIN 10.4 g/dL (12-16); PLATELET COUNT 154 10x3/uL (130-400)
[2018-09-22 10:50] LABS: ANION GAP 22.7 mmol/L (8-16); BILIRUBIN - TOTAL 0.42 mg/dL (0.2-1.3); CALCIUM 7.5 mg/dL (8.5-10.1); CARBON DIOXIDE 16.6 mmol/L (21.0-32.0); CREATININE - SERUM 5.5 mg/dL (0.6-1.3); MAGNESIUM - SERUM 2.2 mg/dL (1.8-2.4); POTASSIUM - SERUM 5.3 mmol/L (3.5-5.1)
[2018-09-22 10:55] LABS: PROTEIN - SERUM 7.9 g/dL (6.4-8.2)
[2018-09-22 13:00] VITALS: BP 134/51
[2018-09-22 20:00] VITALS: BP 137/66
[2018-09-23 07:02] LABS: BASOPHILS 0.3 % (0-2); EOSINOPHILS 4.1 % (0-7); HEMATOCRIT 28.2 % (36.0-48.0); HEMOGLOBIN 9.3 g/dL (12-16); IMMATURE GRANULOCYTES 0.9 % (0-5); LYMPHOCYTES 18.2 % (15-50); MCH 28.9 pg (26.0-34.0); MCV 87.6 fL (80.0-100.0); MONOCYTES 16.7 % (2-11); NEUTROPHILS 59.8 % (40-80); RBC 3.22 10x6/uL (4.00-5.40); RDW 18.9 % (11.5-14.5); WBC 6.8 10x3/uL (4.8-10.8)
[2018-09-23 07:19] LABS: ALBUMIN 2.4 g/dL (3.4-5.0); ANION GAP 21.4 mmol/L (8-16); BILIRUBIN - TOTAL 0.3 mg/dL (0.2-1.3); CALCIUM 7.3 mg/dL (8.5-10.1); CARBON DIOXIDE 16.1 mmol/L (21.0-32.0); CREATININE - SERUM 5.6 mg/dL (0.6-1.3); MAGNESIUM - SERUM 2.1 mg/dL (1.8-2.4); POTASSIUM - SERUM 5.5 mmol/L (3.5-5.1); PROTEIN - SERUM 6.3 g/dL (6.4-8.2)
[2018-09-23 07:36] LABS: PLATELET COUNT 111 10x3/uL (130-400)
[2018-09-23 08:16] VITALS: BP 152/62
[2018-09-23 15:30] VITALS: BP 110/60
[2018-09-23 20:00] VITALS: BP 144/51
[2018-09-24] VITALS: BP 137/55
[2018-09-24 04:00] VITALS: BP 142/58
[2018-09-24 08:05] VITALS: BP 133/50
[2018-09-24 11:52] VITALS: BP 136/54
[2018-09-24 13:16] LABS: HEPATITIS BE ANTIBODY Negative (Negative)
[2018-09-24 14:21] VITALS: BP 140/52
[2018-09-24 21:42] VITALS: BP 128/48
[2018-09-25 00:57] VITALS: BP 133/46
[2018-09-25 05:39] VITALS: BP 122/50
[2018-09-25 06:13] LABS: HEPATITIS C ANTIBODY <0.1 S/CO RAT (0.0-0.9)
[2018-09-25 07:21] LABS: BASOPHILS 0.1 % (0-2); EOSINOPHILS 2.9 % (0-7); HEMATOCRIT 24.6 % (36.0-48.0); IMMATURE GRANULOCYTES 0.5 % (0-5); LYMPHOCYTES 21.2 % (15-50); MCH 28.8 pg (26.0-34.0); MCHC 32.5 g/dL (31.0-37.0); MCV 88.5 fL (80.0-100.0); MONOCYTES 19.2 % (2-11); NEUTROPHILS 56.1 % (40-80); PLATELET COUNT 86 10x3/uL (130-400); RBC 2.78 10x6/uL (4.00-5.40); RDW 18.5 % (11.5-14.5); WBC 7.6 10x3/uL (4.8-10.8)
[2018-09-25 07:39] LABS: PLATELET ESTIMATE DECREASED
[2018-09-25 07:40] LABS: ALBUMIN 2.3 g/dL (3.4-5.0); ANION GAP 17.6 mmol/L (8-16); BILIRUBIN - TOTAL 0.27 mg/dL (0.2-1.3); CARBON DIOXIDE 20.6 mmol/L (21.0-32.0); CREATININE - SERUM 5.2 mg/dL (0.6-1.3); MAGNESIUM - SERUM 2.1 mg/dL (1.8-2.4); POTASSIUM - SERUM 5.2 mmol/L (3.5-5.1); PROTEIN - SERUM 6.6 g/dL (6.4-8.2)
[2018-09-25 16:55] VITALS: BP 104/41
[2018-09-25 20:00] VITALS: BP 119/47
[2018-09-26] VITALS: BP 149/81
[2018-09-26 04:00] VITALS: BP 136/86
[2018-09-26 09:24] VITALS: BP 111/52
[2018-09-26 10:07] LABS: BASOPHILS 0.3 % (0-2); EOSINOPHILS 3.4 % (0-7); HEMATOCRIT 24.1 % (36.0-48.0); HEMOGLOBIN 7.8 g/dL (12-16); IMMATURE GRANULOCYTES 0.5 % (0-5); LYMPHOCYTES 21.3 % (15-50); MCH 28.9 pg (26.0-34.0); MCHC 32.4 g/dL (31.0-37.0); MCV 89.3 fL (80.0-100.0); MONOCYTES 18.2 % (2-11); NEUTROPHILS 56.3 % (40-80); PLATELET COUNT 102 10x3/uL (130-400); RDW 18.7 % (11.5-14.5); WBC 6.5 10x3/uL (4.8-10.8)
[2018-09-26 10:17] LABS: CALCIUM 7.1 mg/dL (8.5-10.1); CARBON DIOXIDE 24.3 mmol/L (21.0-32.0); CREATININE - SERUM 4.6 mg/dL (0.6-1.3); POTASSIUM - SERUM 4.3 mmol/L (3.5-5.1)
[2018-09-26 13:28] VITALS: BP 126/59
[2018-09-26 16:47] VITALS: BP 115/60
[2018-09-26 20:00] VITALS: BP 133/52
[2018-09-27 04:00] VITALS: BP 107/56
[2018-09-27 05:45] LABS: BASOPHILS 0.1 % (0-2); EOSINOPHILS 2.9 % (0-7); HEMATOCRIT 26.7 % (36.0-48.0); HEMOGLOBIN 8.4 g/dL (12-16); IMMATURE GRANULOCYTES 0.4 % (0-5); LYMPHOCYTES 19.8 % (15-50); MCHC 31.5 g/dL (31.0-37.0); MONOCYTES 20.1 % (2-11); NEUTROPHILS 56.7 % (40-80); RDW 18.4 % (11.5-14.5); WBC 6.8 10x3/uL (4.8-10.8)
[2018-09-27 05:49] LABS: PLATELET COUNT 125 10x3/uL (130-400)
[2018-09-27 06:00] LABS: ANION GAP 16.2 mmol/L (8-16); CALCIUM 7.2 mg/dL (8.5-10.1); CARBON DIOXIDE 24.4 mmol/L (21.0-32.0); CREATININE - SERUM 4.8 mg/dL (0.6-1.3); POTASSIUM - SERUM 4.6 mmol/L (3.5-5.1)
[2018-09-27 10:48] VITALS: BP 161/86
[2018-09-27 14:38] VITALS: BP 156/79
[2018-09-27 16:55] VITALS: BP 138/49
[2018-09-27 20:00] VITALS: BP 124/43
[2018-09-28] VITALS: BP 136/49
[2018-09-28 04:00] VITALS: BP 136/49
[2018-09-28 06:02] LABS: HEMOGLOBIN 8.3 g/dL (12-16); MCH 28.6 pg (26.0-34.0); MCHC 31.9 g/dL (31.0-37.0); MCV 89.7 fL (80.0-100.0); PLATELET COUNT 112 10x3/uL (130-400); RDW 18.4 % (11.5-14.5)
[2018-09-28 06:23] LABS: ANION GAP 16.6 mmol/L (8-16); CALCIUM 7.2 mg/dL (8.5-10.1); CREATININE - SERUM 5.1 mg/dL (0.6-1.3); POTASSIUM - SERUM 4.6 mmol/L (3.5-5.1)
[2018-09-28 07:57] LABS: ANISOCYTOSIS 1+; BASOPHILS 1 % (0-2); EOSINOPHILS 2 % (0-7); LYMPHOCYTES 17 % (15-50); MONOCYTES 21 % (2-11); NEUTROPHILS 58 % (40-80); PLATELET ESTIMATE DECREASED
[2018-09-28 07:58] LABS: SPHEROCYTES OCC
[2018-09-28 08:47] VITALS: BP 130/49
[2018-09-28 16:21] VITALS: BP 128/47
[2018-09-28 21:41] VITALS: BP 113/46
[2018-09-29 01:16] VITALS: BP 131/50
[2018-09-29 05:50] VITALS: BP 138/62
[2018-09-29 06:18] LABS: ANION GAP 20.4 mmol/L (8-16); CALCIUM 7.6 mg/dL (8.5-10.1); CARBON DIOXIDE 21.7 mmol/L (21.0-32.0); CREATININE - SERUM 4.2 mg/dL (0.6-1.3); POTASSIUM - SERUM 4.1 mmol/L (3.5-5.1)
[2018-09-29 06:37] LABS: BASOPHILS 0.4 % (0-2); EOSINOPHILS 3.3 % (0-7); IMMATURE GRANULOCYTES 0.1 % (0-5); LYMPHOCYTES 17.3 % (15-50); MCH 29.1 pg (26.0-34.0); MCHC 32.3 g/dL (31.0-37.0); MCV 90.2 fL (80.0-100.0); MONOCYTES 18.8 % (2-11); NEUTROPHILS 60.1 % (40-80); PLATELET COUNT 97 10x3/uL (130-400); RDW 18.3 % (11.5-14.5); WBC 7.4 10x3/uL (4.8-10.8)
[2018-09-29 06:39] LABS: HEMATOCRIT 32.2 % (36.0-48.0); HEMOGLOBIN 10.4 g/dL (12-16); RBC 3.57 10x6/uL (4.00-5.40)
[2018-09-29 09:17] VITALS: BP 158/73
[2018-09-29 11:08] VITALS: BP 158/49
[2018-09-29 15:13] VITALS: BP 134/52
[2018-09-29 21:07] VITALS: BP 139/57
[2018-09-30 00:42] VITALS: BP 146/57
[2018-09-30 05:17] VITALS: BP 150/61
[2018-09-30 08:26] VITALS: BP 90/47
[2018-09-30 10:59] VITALS: BP 138/62
[2018-09-30 18:43] VITALS: BP 121/54
[2018-09-30 21:03] VITALS: BP 114/56
[2018-10-01] VITALS (7 sets, daily range): BP systolic 121–189; BP diastolic 48–79
[2018-10-01 06:37] LABS: BASOPHILS 0.3 % (0-2); EOSINOPHILS 2.9 % (0-7); HEMATOCRIT 30.4 % (36.0-48.0); HEMOGLOBIN 9.8 g/dL (12-16); IMMATURE GRANULOCYTES 0.3 % (0-5); LYMPHOCYTES 20.5 % (15-50); MCH 28.7 pg (26.0-34.0); MCHC 32.2 g/dL (31.0-37.0); MCV 89.1 fL (80.0-100.0); MONOCYTES 20.8 % (2-11); NEUTROPHILS 55.2 % (40-80); PLATELET COUNT 91 10x3/uL (130-400); RBC 3.41 10x6/uL (4.00-5.40); RDW 18.2 % (11.5-14.5); WBC 7.2 10x3/uL (4.8-10.8)
[2018-10-01 07:00] LABS: ANION GAP 14.9 mmol/L (8-16); CALCIUM 7.6 mg/dL (8.5-10.1); CARBON DIOXIDE 25.9 mmol/L (21.0-32.0); POTASSIUM - SERUM 3.8 mmol/L (3.5-5.1)
[2018-10-02 03:50] VITALS: BP 162/67
[2018-10-02 07:50] VITALS: BP 122/68
== END 2018-10-02 16:21 | disposition home health service (06) | DRG 673 ==
LOC: D.M2 17:43
PROVIDERS: Emergency Medicine; Internal Medicine Nephrology; Surgery
PROC: B5181ZA Fluoroscopy of Superior Vena Cava using Low Osmolar Contrast, Guidance (ICD-10-PCS; 2018-09-23)
PROC: 0JH63XZ Insertion of Tunneled Vascular Access Device into Chest Subcutaneous Tissue and Fascia, Percutaneous Approach (ICD-10-PCS; principal; 2018-09-23 13:15)
PROC: 02HV33Z Insertion of Infusion Device into Superior Vena Cava, Percutaneous Approach (ICD-10-PCS; 2018-09-23 13:15)
DX: N17.9 Acute kidney failure, unspecified (principal); G92 Toxic encephalopathy; I13.2 Hypertensive heart and chronic kidney disease with heart failure and with stage 5 chronic kidney disease, or end stage renal disease; I50.32 Chronic diastolic (congestive) heart failure; E87.2 Acidosis; M62.82 Rhabdomyolysis; E11.22 Type 2 diabetes mellitus with diabetic chronic kidney disease; E78.5 Hyperlipidemia, unspecified; J44.9 Chronic obstructive pulmonary disease, unspecified; E11.40 Type 2 diabetes mellitus with diabetic neuropathy, unspecified; G40.909 Epilepsy, unspecified, not intractable, without status epilepticus; F03.90 Unspecified dementia, unspecified severity, without behavioral disturbance, psychotic disturbance, mood disturbance, and anxiety; D64.9 Anemia, unspecified; N18.6 End stage renal disease; D63.1 Anemia in chronic kidney disease; Z85.3 Personal history of malignant neoplasm of breast

== ENCOUNTER 2018-10-05 12:25 | Observation (INO) | payer MEDICAID ==
[~2018-10-05] VITALS: Ht 175.3 cm; Wt 126.6 kg
--- NOTE | ~2018-10-05 | MORECARE ---
CASE MANAGEMENT DISCHARGE SUMMARY PATIENT: STACY DAVIS UNIT: [id number] ADM DATE: 10/05/18 AGE: 62 : 51 SEX: F ROOM/BED: D.2101 AUTHOR: KERRI,DOC PHYSICIAN: REFERRING PHYSICIAN: JAIMIE JENSEN MD DATE OF SERVICE: 10/08/18 Discharge Plan Patient Name: STACY DAVIS Facility: [facility]:[place] : 1955 Planned Disposition: Nursing Facility [facility] Cert Anticipated Discharge Date: 10/09/18 Discharge Date: Expected LOS: 4 Initial Reviewer: [id number] Initial Review Date: 10/05/2018 Generated: 10/08/18 5:33 pm Comments DCP- Discharge Planning Updated by [email or web address]: Codi Manrique on 10/08/18 3:[address] Patient Name: STACY DAVIS Encounter No: [id number] : 1955 Primary Insurance: [place]ID [place] Anticipated DC Date: 10-07-2018 Planned Disposition: Nursing Facility [facility] Cert External Planned Provider: [facility] IN [place], USP [facility] MEDICAID BED DCP follow-up note: BRICE RECEIVED MESSAGE THAT [facility] WOULD ACCEPT AND NEEDED SOCIAL SECURITY NUMBER FOR PT. BRICE CALLED ALISSA DRISCOLL DTR, , RECEIVED NUMBER [phone]. ALISSA IN AGREEMENT WITH DISCHARGE TO [facility], SHE HAS TALKED TO [facility] AND INFORMED THEM SHE WILL ASSIST WITH ADMISSION PAPERWORK IF NEEDED. BRICE CALLED REBEKAH AT [facility], AND PROVIDED THE INFORMATION. [facility] WILL ACCEPT PT ON 10-09-18. PT HAS OUTPATIENT DIALYSIS IN [place] ON MWF 1130AM SCHEDULE, BOTH THE RETIREMENT AND DIALYSIS UNIT HAVE GEOVANY LIFT. PT'S FIRST DIALYSIS IS ON THURSDAY AT 1100AM. BRICE SPOKE SILVINA SHAIKH OF [facility] IN [facility], , [place] [phone], WHO REPORTS THERE IS NO HOLD BY APS AND THEY WILL FOLLOW UP WITH PT AT PLACEMENT PROVIDER. CM FAXED HOSPITAL CARE NOTES TO [facility] AT [phone]. FOR DISCHARGE 10-09-18, NURSE REPORT TO BE CALLED TO [facility] IN [place] AT [phone]. FAX DISCHARGE INFORMATION TO [facility] AT [phone]. PT TO TRANSPORT VIA AMBULANCE. CODI MANRIQUE, SHAYE STEINER DCP- Discharge Planning Updated by [email or web address]: Danette Ochoa on 10/08/18 2:[address] RECEIVED A CALL FROM [facility] (I DID NOT WRITE DOWN THE NAME) WHO STATED THAT THEY WOULD ACCEPT THE PATIENT AND THEY ALSO HAVE AN ACCEPTING DIALYSIS FACILITY. SHE ASKED IF WE HAD A VALID SSN ON THE PATIENT, AND ALL I SHOW IN THE COMPUTER IS [id number]. I EXPLAINED THE I KNEW DEREK WAS WORKING ON IT. SHE REQUESTED THAT DEREK CALL REBEKAH AT [phone]. THIS MESSAGE WAS RELAYED TO DEREK. I CONFIRMED WITH DALJIT DUMONT THAT THE PATIENT IS ACCEPTED TO [facility] FOR M-W-F @ 1100. THEY HAVE NO TRANSPORTATION AND WE DISCUSSED SEEING IF SHE WOULD QUALIFY FOR AN AMBULANCE. I HAVE SPOKE WITH DR RAMIRES AND RILEY NOONAN WHO ARE AWARE THAT SHE CAN DISCHARGE AFTER DIALYSIS TOMORROW. DCP- Discharge Planning Updated by [id number]: Codi Manrique on 10/07/18 11:[address] Patient Name: STACY DAVIS Encounter No: [id number] : 1955 Primary Insurance: MEDICAID [facility] DC Date: 10-07-2018 Planned Disposition: Nursing Facility [facility] External Planned Provider: FIRST ACCEPTING FACILITY DCP follow-up note: CM RECEIVEC CALL FROM RICCARDO [facility]ALE[facility] THEY ARE NOT ABLE TO ACCEPT ANY DIALYSIS PATIENTS AT THIS TIME. RICCARDO ASKED PERMISSION TO SEND REFERRAL TO [facility] IN [place], BRICE EXPLAINED THAT FAMILY WOULD LIKE ANY FACLITY THAT IS ABLE TO CARE FOR PT IN [place] THIS IS THE CLOSEST THAT DIALYSIS IS AVAILABLE WITH A LIFT. CM RECEIVED CALL FROM CEDRIC OF [facility] IN [place], SHE WILL SEND REFERRAL TO HER DOCTOR FOR REVIEW AND SPEAK TO FAMILY. CEDRIC WILL CALL CM WITH DETERMINATION. CM WAITING ADMISSION DETERMINATIONS FROM [facility] AND [facility] IN [place] FOR SURG TECH CARE. IF ACCEPTED, CM WILL REQUEST DIALYSIS UNIT IN [place]. Plaster Mold Maker: Codi Manrique DCP- Discharge Planning Updated by [email or web address]: Codi Manrique on 10/06/18 4:[address] Patient Name: STACY DAVIS Admission Status: Elective Accout number: [id number] Admission Date: 10-05-2018 : 1955 Admission Diagnosis: Attending: JAIMIE JENSEN Current LOS: 1 Anticipated DC Date: 10-07-2018 Planned Disposition: Nursing Facility [facility] Primary Insurance: MEDICAID [place] PLANNED EXTERNAL PROVIDER: [facility] OR [facility] IN [place], USP [facility] MEDICAID BED Discharge Planning Comments: CM MET WITH PT IN ROOM TO DISCUSS DISCHARGE PLANNING AND NEEDS. PT REPORTS SHE WENT TO HER DAUGHTER'S HOME BUT SHE FELL AT HOME. FAMILY COULD NOT GET HER UP. PT REPORTS HER FAMILY IS NOT ABLE TO TAKE CARE OF HER AT HOME RIGHT NOW AND THEY ARE TRYING TO GET HER INTO A RETIREMENT. PT IS AGREEABLE TO ANY RETIREMENT THAT HER FAMILY HAS PICKED OUT. PT HAS ROLLING WALKER WITH WHEELS SEAT AND BRAKES AT HOME THAT SHE CANNOT USE RIGHT NOW. PT PERFERS [facility] FOR HER MEDICAL EQUIPMENT. CM RECEIVED CALL FROM GWENDOLYN DRISCOLL, , WHO PROVIDED NAMES OF [facility], [facility] AND [facility] IN [place]. CM SPOKE TO PT WHO SIGNED CONSENT FOR THOSE THREE AND IF NEEDED, ANY THAT IS CLOSE TO HER HOME IN [place] SO THAT FAMILY CAN COME SEE HER. PT WAS ACCEPTED AT [facility], FIRST APPOINTMENT ON 10-05. ALISSA INFORMED CM THAT PT WILL NEED A NEW DIALYSIS CENTER [place] DOES NOT USE GEOVANY LIFT AND [facility] UNIT DOES. CM SPOKE TO SILVINA OF [facility] WHO INFORMED CM THAT THE [place] DIALYSIS UNIT IS LIFT EQUIPPED AND DOES CUR[facility]TY HAVE A MWF SCHEDULE AVAILABLE IF ACCEPTED AT [facility]. CM ASKED PT ABOUT HE SEIZURE DISORDER, PT REPORTS SHE WAS DIAGNOSED AROUND 22 YEARS OF AGE WITH SEIZURES AND TAKES MEDICINE FOR THEM. SHE CANNOT REMEMBER THE LAST TIME SHE HAD A SEIZURE STATING IT HAS BEEN A LONG TIME. CM CALLED [facility], , SPOKE TO FERMIN WHO DECLINED PT. CM CALLED [facility], , PROVIDED BRIEF DESCRIPTION OF NEED AND FAXED REFERRAL FOR [facility] TO [facility] AT [phone]. CM CALLED [facility], , LEFT MESSAGE FOR [facility], FAXED REFERRAL TO [facility] AT [phone]. CM WAITING ADMISSION DETERMINATIONS FROM [facility] AND [facility] IN [place] FOR SURG TECH CARE. IF ACCEPTED, CM WILL REQUEST DIALYSIS UNIT IN [place]. Plaster Mold Maker: Codi Manrique DCPIA - Discharge Planning Initial Assessment Updated by [id number]: Codi Manrique on 10/06/18 5:03 pm * Is the patient Alert and Oriented? Yes * How many steps to enter\exit or inside your home? * PCP DR GUZMAN [place] * Pharmacy [facility] IN [place] * Preadmission Environment Home with Family * ADLs Partial Dependent * Partial ADLs (Assistance needed) Ambulation Bathing Dressing Medication Management Toileting Transfers * Equipment Rolling Walker * Other Equipment [facility] - PREFERRED EQUIPMENT PROVIDER * List name and contact numbers for known caregivers / representatives who currently or will assist patient after discharge: FRITZ PERALES DTR, ALISSA DRISCOLL DTR, * Verbal permission to speak to the caregivers and representatives has been obtained from the patient. Yes * Community resources currently utilized Home Health * Please name any agencies selected above. [facility]- NOT ADMITTED DUE TO HOSPITAL READMISSION * Additional services required to return to the preadmission environment? Yes * Can the patient safely return to the preadmission environment? No * Has this patient been hospitalized within the prior 30 days at any hospital? Yes External Providers External Provider: OTHER-OTHER Next Contact Date: 10/08/2018 Service Request Date: Service Type: Resolution: Reviewer: Comments: Coverage Notice Reviewer: [id number] - Codi Manrique Notice Issued Date-Time: 10/06/2018 14:15 Notice Type: Patient Choice Letter Notice Delivered To: Patient Relationship to Patient: Dairy Associate Name: Delivery Method: HAND - Hand Delivered Isabel Days: Prior Verbal Notification: Recipient Understood Notice: Yes Recipient Signature: Yes Med Rec Note Co-signed by Attending: Coverage Notice Comment: tyree hester or Clarisa in [place] Last DP export: 10/08/18 3:25 Patient Name: STACY DAVIS Page [id number] at 1634 All edits/amendments must be made on the electronic document DICTATION DATE: 10/08/181632 HOSPITALITY DIRECTOR: TAMAR 10/08/181632 RPT#: [id number] DC DATE: STATUS: ADM IN [facility] [address] [place] [address] END OF REPORT
--- NOTE | ~2018-10-05 | MORECARE ---
CASE MANAGEMENT DISCHARGE SUMMARY PATIENT: STACY DAVIS UNIT: [id number] ADM DATE: 10/05/18 AGE: 62 : 53 SEX: F ROOM/BED: D.2106 AUTHOR: KERRI,DOC PHYSICIAN: REFERRING PHYSICIAN: JAIMIE JENSEN MD DATE OF SERVICE: 10/06/18 Discharge Plan Patient Name: STACY DAVIS Facility: [facility]:[place] : 1955 Planned Disposition: Nursing Facility [facility] Cert Anticipated Discharge Date: 10/07/18 Discharge Date: Expected LOS: 2 Initial Reviewer: [id number] Initial Review Date: 10/05/2018 Generated: 10/06/18 6:08 pm DCPIA - Discharge Planning Initial Assessment Updated by [email or web address]: Balwinder Gomez on 10/06/18 5:03 pm * Is the patient Alert and Oriented? Yes * How many steps to enter\exit or inside your home? * PCP DR GUZMAN [place] * Pharmacy [facility] [place] * Preadmission Environment Home with Family * ADLs Partial Dependent * Partial ADLs (Assistance needed) Ambulation Bathing Dressing Medication Management Toileting Transfers * Equipment Rolling Walker * Other Equipment [facility] - PREFERRED EQUIPMENT PROVIDER * List name and contact numbers for known caregivers / representatives who currently or will assist patient after discharge: FRITZ PERALES, DTR, ALISSA DRISCOLL, DTR, * Verbal permission to speak to the caregivers and representatives has been obtained from the patient. Yes * Community resources currently utilized Home Health * Please name any agencies selected above. [facility]- NOT ADMITTED DUE TO HOSPITAL READMISSION * Additional services required to return to the preadmission environment? Yes * Can the patient safely return to the preadmission environment? No * Has this patient been hospitalized within the prior 30 days at any hospital? Yes Coverage Notice Reviewer: [id number] - Balwinder Gomez Notice Issued Date-Time: 10/06/2018 14:15 Notice Type: Patient Choice Letter Notice Delivered To: Patient Relationship to Patient: Top Lift And Automatic Window Repairer Name: Delivery Method: HAND - Hand Delivered Isabel Days: Prior Verbal Notification: Recipient Understood Notice: Yes Recipient Signature: Yes Med Rec Note Co-signed by Attending: Coverage Notice Comment: [facility] hester or Maynor in [place] Last DP export: 10/06/18 4:01 Patient Name: STACY DAVIS Page [id number] at 1708 All edits/amendments must be made on the electronic document DICTATION DATE: 10/06/181707 ENDODONTIST: TAMAR 10/06/181707 RPT#: [id number] DC DATE: STATUS: ADM IN [facility] [address] [place] [address] END OF REPORT
--- NOTE | ~2018-10-05 | MORECARE ---
CASE MANAGEMENT DISCHARGE SUMMARY PATIENT: STACY DAVIS UNIT: [id number] ADM DATE: 10/05/18 AGE: 62 : 53 SEX: F ROOM/BED: D.2106 AUTHOR: SHONDA MANNING PHYSICIAN: REFERRING PHYSICIAN: JAIMIE JENSEN MD DATE OF SERVICE: 10/06/18 Discharge Plan Patient Name: STACY DAVIS [facility] : 1955 Planned Disposition: Nursing Facility [facility] Cert Anticipated Discharge Date: 10/07/18 Discharge Date: Expected LOS: 2 Initial Reviewer: [id number] Initial Review Date: 10/05/2018 Generated: 10/06/18 6:01 pm External Providers External Provider: Melinda [facility] Next Contact Date: 10/07/2018 Service Request Date: Service Type: Resolution: Reviewer: Comments: [facility] Next Contact Date: 10/07/2018 Service Request Date: Service Type: Resolution: Reviewer: Comments: External Provider: [facility] Next Contact Date: 10/07/2018 Service Request Date: Service Type: Resolution: Reviewer: Comments: Coverage Notice Reviewer: [id number] - Balwinder Gomez Notice Issued Date-Time: 10/06/2018 14:15 Notice Type: Patient Choice Letter Notice Delivered To: Patient Relationship to Patient: Heating Mechanic Name: Delivery Method: HAND - Hand Delivered Isabel Days: Prior Verbal Notification: Recipient Understood Notice: Yes Recipient Signature: Yes Med Rec Note Co-signed by Attending: Coverage Notice Comment: tyree hester or Maynor in [place] Patient Name: STACY DAVIS Page [id number] at 1701 All edits/amendments must be made on the electronic document DICTATION DATE: 10/06/181700 RADIOACTIVE WASTE DISPOSAL DISPATCHER: TAMAR 10/06/181700 RPT#: [id number] DC DATE: STATUS: ADM IN [facility] [address] [place] [address] END OF REPORT
--- NOTE | ~2018-10-05 | MORECARE ---
CASE MANAGEMENT DISCHARGE SUMMARY PATIENT: STACY DAVIS UNIT: [id number] ADM DATE: 10/05/18 AGE: 62 : 53 SEX: F ROOM/BED: D.2106 AUTHOR: KERRI,DOC PHYSICIAN: REFERRING PHYSICIAN: JAIMIE JENSEN MD DATE OF SERVICE: 10/07/18 Discharge Plan Patient Name: STACY DAVIS Facility: [facility]:[place] : 1955 Planned Disposition: Nursing Facility [facility] Cert Anticipated Discharge Date: 10/07/18 Discharge Date: Expected LOS: 2 Initial Reviewer: [email or web address] Initial Review Date: 10/05/2018 Generated: 10/07/18 2:04 pm Comments DCP- Discharge Planning Updated by [email or web address]: Balwinder Gomez on 10/07/18 11:[address] Patient Name: STACY DAVIS Encounter No: [id number] : 1955 Primary Insurance: MEDICAID [place] Anticipated DC Date: 10-07-2018 Planned Disposition: Nursing Facility [facility] Cert External Planned Provider: FIRST ACCEPTING FACILITY DCP follow-up note: CM RECEIVEC CALL FROM [facility], THEY ARE NOT ABLE TO ACCEPT ANY DIALYSIS PATIENTS AT THIS TIME. RICC[facility]O ASKED PERMISSION TO SEND REFERRAL TO [facility] IN [place], CM EXPLAINED THAT FAMILY WOULD LIKE ANY FACLITY THAT IS ABLE TO CARE FOR PT IN [place] THIS IS THE CLOSEST THAT DIALYSIS IS AVAILABLE WITH A LIFT. CM RECEIVED CALL FROM CEDRIC OF [facility] IN [place], SHE WILL SEND REFERRAL TO HER DOCTOR FOR REVIEW AND SPEAK TO FAMILY. CEDRIC WILL CALL CM WITH DETERMINATION. CM WAITING ADMISSION DETERMINATIONS FROM [facility] AND [facility] IN [place] FOR CORRECTION CARE. IF ACCEPTED, CM WILL REQUEST DIALYSIS UNIT IN [place]. Health Information Systems Technician: Balwinder Gomez DCP- Discharge Planning Updated by [email or web address]: Balwinder Gomez on 10/06/18 4:[address] Patient Name: STACY DAVIS Admission Status: Elective Accout number: [id number] Admission Date: 10-05-2018 : 1955 Admission Diagnosis: Attending: JAIMIE JENSEN Current LOS: 1 Anticipated DC Date: 10-07-2018 Planned Disposition: Nursing Facility [facility] Primary Insurance: MEDICAID [place] PLANNED EXTERNAL PROVIDER: [facility] IN [place], DIAL EQUIPMENT ENGINEER [facility] MEDICAID BED Discharge Planning Comments: CM MET WITH PT IN ROOM TO DISCUSS DISCHARGE PLANNING AND NEEDS. PT REPORTS SHE WENT TO HER DAUGHTER'S HOME BUT SHE FELL AT HOME. FAMILY COULD NOT GET HER UP. PT REPORTS HER FAMILY IS NOT ABLE TO TAKE CARE OF HER AT HOME RIGHT NOW AND THEY ARE TRYING TO GET HER INTO A CORRECTION. PT IS AGREEABLE TO ANY CORRECTION THAT HER FAMILY HAS PICKED OUT. PT HAS ROLLING WALKER WITH WHEELS SEAT AND BRAKES AT HOME THAT SHE CANNOT USE RIGHT NOW. PT PERFERS [facility] FOR HER MEDICAL EQUIPMENT. CM RECEIVED CALL FROM GWENDOLYN DRISCOLL, , WHO [facility], [facility] AND [facility] IN [place]. CM SPOKE TO PT WHO SIGNED CONSENT FOR THOSE THREE AND IF NEEDED, ANY THAT IS CLOSE TO HER HOME IN [place] SO THAT FAMILY CAN COME SEE HER. PT WAS ACCEPTED AT [facility], [facility], FIRST APPOINTMENT ON 10-05. ALISSA INFORMED CM THAT PT WILL NEED A NEW DIALYSIS CENTER [place] DOES NOT USE GEOVANY LIFT AND [facility] UNIT DOES. CM SPOKE TO SILVINA OF [facility] WHO INFORMED CM THAT THE [place] DIALYSIS UNIT IS LIFT EQUIPPED AND DOES [facility] HAVE A MWF SCHEDULE AVAILABLE IF ACCEPTED AT [facility]. CM ASKED PT ABOUT HE SEIZURE DISORDER, PT REPORTS SHE WAS DIAGNOSED AROUND 22 YEARS OF AGE WITH SEIZURES AND TAKES MEDICINE FOR THEM. SHE CANNOT REMEMBER THE LAST TIME SHE HAD A SEIZURE STATING IT HAS BEEN A LONG TIME. CM CALLED [facility], , SPOKE TO FERMIN WHO DECLINED PT. CM CALLED JOCELYN OF [facility], , PROVIDED BRIEF DESCRIPTION OF NEED AND FAXED REFERRAL FOR [facility] TO [facility] AT [phone]. CM CALLED [facility], , LEFT MESSAGE FOR RICCARDO, FAXED REFERRAL TO [facility] AT [phone]. CM WAITING ADMISSION DETERMINATIONS FROM [facility] AND [facility] IN [place] FOR DIAL EQUIPMENT ENGINEER CARE. IF ACCEPTED, CM WILL REQUEST DIALYSIS UNIT IN [place]. Health Information Systems Technician: Balwinder Gomez DCPIA - Discharge Planning Initial Assessment Updated by [email or web address]: Balwinder Gomez on 10/06/18 5:03 pm * Is the patient Alert and Oriented? Yes * How many steps to enter\exit or inside your home? * PCP DR GUZMAN [place] * Pharmacy [facility] IN [place] * Preadmission Environment Home with Family * ADLs Partial Dependent * Partial ADLs (Assistance needed) Ambulation Bathing Dressing Medication Management Toileting Transfers * Equipment Rolling Walker * Other Equipment [facility] - PREFERRED EQUIPMENT PROVIDER * List name and contact numbers for known caregivers / representatives who currently or will assist patient after discharge: FRITZ PERALES, DTTrang, ALISSA DRISCOLL DTR, * Verbal permission to speak to the caregivers and representatives has been obtained from the patient. Yes * Community resources currently utilized Home Health * Please name any agencies selected above. [facility]- NOT ADMITTED DUE TO HOSPITAL READMISSION * Additional services required to return to the preadmission environment? Yes * Can the patient safely return to the preadmission environment? No * Has this patient been hospitalized within the prior 30 days at any hospital? Yes Coverage Notice Reviewer: [id number] - Balwinder Gomez Notice Issued Date-Time: 10/06/2018 14:15 Notice Type: Patient Choice Letter Notice Delivered To: Patient Relationship to Patient: Nursery Teacher Name: Delivery Method: HAND - Hand Delivered Isabel Days: Prior Verbal Notification: Recipient Understood Notice: Yes Recipient Signature: Yes Med Rec Note Co-signed by Attending: Coverage Notice Comment: tyree hester or Clarisa in [place] Last DP export: 10/06/18 4:23 Patient Name: STACY DAVIS Page 18785 at 1305 All edits/amendments must be made on the electronic document DICTATION DATE: 10/07/18 130 COOLER OPERATOR: TAMAR 10/07/18 1304 RPT#: [id number] DC DATE: STATUS: ADM IN [facility] [address] [place] [address] END OF REPORT
--- NOTE | ~2018-10-05 | MORECARE ---
CASE MANAGEMENT DISCHARGE SUMMARY PATIENT: STACY DAVIS UNIT: [id number] ADM DATE: 10/05/18 AGE: 62 : 53 SEX: F ROOM/BED: D.2103 AUTHOR: KERRI,DOC PHYSICIAN: REFERRING PHYSICIAN: JAIMIE JENSEN MD DATE OF SERVICE: 10/08/18 Discharge Plan Patient Name: STACY DAVIS Facility: [facility]:[place] : 1955 Planned Disposition: Nursing Facility [facility] Cert Anticipated Discharge Date: 10/09/18 Discharge Date: Expected LOS: 4 Initial Reviewer: [id number] Initial Review Date: 10/05/2018 Generated: 10/08/18 5:24 pm Comments DCP- Discharge Planning Updated by [id number]: Codi Manrique on 10/08/18 3:[address] Patient Name: STACY DAVIS Encounter No: [id number] : 1955 Primary Insurance: MEDICAID [place] Anticipated DC Date: 10-07-2018 Planned Disposition: Nursing Facility [facility] Cert External Planned Provider: [facility] IN [place], FDC CARE MEDICAID BED DCP follow-up note: BRICE RECEIVED MESSAGE THAT [facility] WOULD ACCEPT AND NEEDED SOCIAL SECURITY NUMBER FOR PT. BRICE CALLED ALISSA DRISCOLL DTR, , RECEIVED NUMBER [phone]. ALISSA IN AGREEMENT WITH DISCHARGE TO [facility], SHE HAS TALKED TO [facility] AND INFORMED THEM SHE WILL ASSIST WITH ADMISSION PAPERWORK IF NEEDED. BRICE CALLED REBEKAH AT [facility], AND PROVIDED THE INFORMATION. [facility] WILL ACCEPT PT ON 10-09-18. PT HAS OUTPATIENT DIALYSIS IN [place] ON MWF 1130AM SCHEDULE, BOTH THE LONGTERM AND DIALYSIS UNIT HAVE GEOVANY LIFT. PT'S FIRST DIALYSIS IS ON THURSDAY AT 1100AM. BRICE SPOKE SILVINA SHAIKH OF [facility] IN [facility], , [place] [phone], WHO REPORTS THERE IS NO HOLD BY APS AND THEY WILL FOLLOW UP WITH PT AT PLACEMENT PROVIDER. CM FAXED HOSPITAL CARE NOTES TO [facility] AT [phone]. FOR DISCHARGE 10-09-18, NURSE REPORT TO BE CALLED TO [facility] IN [place] AT [phone]. FAX DISCHARGE INFORMATION TO [facility] AT [phone]. PT TO TRANSPORT VIA AMBULANCE. CODI MANRIQUE, SHAYE STEINER DCP- Discharge Planning Updated by [id number]: Danette Ochoa on 10/08/18 2:[address] RECEIVED A CALL FROM [facility] (I DID NOT WRITE DOWN THE NAME) WHO STATED THAT THEY WOULD ACCEPT THE PATIENT AND THEY ALSO HAVE AN ACCEPTING DIALYSIS FACILITY. SHE ASKED IF WE HAD A VALID SSN ON THE PATIENT, AND ALL I SHOW IN THE COMPUTER IS [id number]. I EXPLAINED THE I KNEW DEREK WAS WORKING ON IT. SHE REQUESTED THAT DEREK CALL REBEKAH AT [phone]. THIS MESSAGE WAS RELAYED TO DEREK. I CONFIRMED WITH DALJIT DUMONT THAT THE PATIENT IS ACCEPTED TO [facility] FOR M-W-F @ 1100. THEY HAVE NO TRANSPORTATION AND WE DISCUSSED SEEING IF SHE WOULD QUALIFY FOR AN AMBULANCE. I HAVE SPOKE WITH DR RAMIRES AND RILEY NOONAN WHO ARE AWARE THAT SHE CAN DISCHARGE AFTER DIALYSIS TOMORROW. DCP- Discharge Planning Updated by [id number]: Codi Manrique on 10/07/18 11:[address] Patient Name: STACY DAVIS Encounter No: [id number] : 1955 Primary Insurance: MEDICAID [facility] DC Date: 10-07-2018 Planned Disposition: Nursing Facility [facility] External Planned Provider: FIRST ACCEPTING FACILITY DCP follow-up note: CM RECEIVEC CALL FROM [facility]ICC[facility], THEY ARE NOT ABLE TO ACCEPT ANY DIALYSIS PATIENTS AT THIS TIME. RICCARDO ASKED PERMISSION TO SEND REFERRAL TO [facility] IN [place], BRICE EXPLAINED THAT FAMILY WOULD LIKE ANY FACLITY THAT IS ABLE TO CARE FOR PT IN [place] THIS IS THE CLOSEST THAT DIALYSIS IS AVAILABLE WITH A LIFT. CM RECEIVED CALL FROM CEDRIC OF [facility] IN [place], SHE WILL SEND REFERRAL TO HER DOCTOR FOR REVIEW AND SPEAK TO FAMILY. CEDRIC WILL CALL CM WITH DETERMINATION. CM WAITING ADMISSION DETERMINATIONS FROM [facility] AND [facility] IN [place] FOR RN SPINE CARE. IF ACCEPTED, CM WILL REQUEST DIALYSIS UNIT IN [place]. Life Science Taxonomist: Codi Manrique DCP- Discharge Planning Updated by [id number]: Codi Manrique on 10/06/18 4:[address] Patient Name: STACY DAVIS Admission Status: Elective Accout number: [id number] Admission Date: 10-05-2018 : 1955 Admission Diagnosis: Attending: JAIMIE JENSEN Current LOS: 1 Anticipated DC Date: 10-07-2018 Planned Disposition: Nursing Facility [facility] Primary Insurance: MEDICAID [place] PLANNED EXTERNAL PROVIDER: [facility] OR [facility] IN [place], FDC [facility] MEDICAID BED Discharge Planning Comments: CM MET WITH PT IN ROOM TO DISCUSS DISCHARGE PLANNING AND NEEDS. PT REPORTS SHE WENT TO HER DAUGHTER'S HOME BUT SHE FELL AT HOME. FAMILY COULD NOT GET HER UP. PT REPORTS HER FAMILY IS NOT ABLE TO TAKE CARE OF HER AT HOME RIGHT NOW AND THEY ARE TRYING TO GET HER INTO A LONGTERM. PT IS AGREEABLE TO ANY LONGTERM THAT HER FAMILY HAS PICKED OUT. PT HAS ROLLING WALKER WITH WHEELS SEAT AND BRAKES AT HOME THAT SHE CANNOT USE RIGHT NOW. PT PERFERS [facility] FOR HER MEDICAL EQUIPMENT. CM RECEIVED CALL FROM GWENDOLYN DRISCOLL, , WHO PROVIDED NAMES OF [facility], [facility] AND [facility] IN [place]. CM SPOKE TO PT WHO SIGNED CONSENT FOR THOSE THREE AND IF NEEDED, ANY THAT IS CLOSE TO HER HOME IN [place] SO THAT FAMILY CAN COME SEE HER. PT WAS ACCEPTED AT [facility], FIRST APPOINTMENT ON 10-05. ALISSA INFORMED CM THAT PT WILL NEED A NEW DIALYSIS CENTER [place] DOES NOT USE GEOVANY LIFT AND [facility] DOES. CM SPOKE TO SILVINA OF [facility] WHO INFORMED CM THAT THE [place] DIALYSIS UNIT IS LIFT EQUIPPED AND DOES CURRLTY HAVE A MWF SCHEDULE AVAILABLE IF ACCEPTED AT [facility]. CM ASKED PT ABOUT HE SEIZURE DISORDER, PT REPORTS SHE WAS DIAGNOSED AROUND 22 YEARS OF AGE WITH SEIZURES AND TAKES MEDICINE FOR THEM. SHE CANNOT REMEMBER THE LAST TIME SHE HAD A SEIZURE STATING IT HAS BEEN A LONG TIME. CM CALLED [facility], , SPOKE TO FERMIN WHO DECLINED PT. CM CALLED [facility], , PROVIDED BRIEF DESCRIPTION OF NEED AND FAXED REFERRAL FOR [facility] TO [facility] AT [phone]. CM CALLED [facility], , LEFT MESSAGE FOR RICCARDO, FAXED REFERRAL TO [facility] AT [phone]. CM WAITING ADMISSION DETERMINATIONS FROM [facility] AND [facility] IN [place] FOR RN SPINE CARE. IF ACCEPTED, CM WILL REQUEST DIALYSIS UNIT IN [place]. Life Science Taxonomist: Codi Manrique DCPIA - Discharge Planning Initial Assessment Updated by [id number]: Codi Manrique on 10/06/18 5:03 pm * Is the patient Alert and Oriented? Yes * How many steps to enter\exit or inside your home? * PCP DR GUZMAN [place] * Pharmacy [facility] IN [place] * Preadmission Environment Home with Family * ADLs Partial Dependent * Partial ADLs (Assistance needed) Ambulation Bathing Dressing Medication Management Toileting Transfers * Equipment Rolling Walker * Other Equipment [facility] - PREFERRED EQUIPMENT PROVIDER * List name and contact numbers for known caregivers / representatives who currently or will assist patient after discharge: FRITZ PERALES DTR, ALISSA DRISCOLL DTR, * Verbal permission to speak to the caregivers and representatives has been obtained from the patient. Yes * Community resources currently utilized Home Health * Please name any agencies selected above. [facility]- NOT ADMITTED DUE TO HOSPITAL READMISSION * Additional services required to return to the preadmission environment? Yes * Can the patient safely return to the preadmission environment? No * Has this patient been hospitalized within the prior 30 days at any hospital? Yes Coverage Notice Reviewer: [id number] - Codi Manrique Notice Issued Date-Time: 10/06/2018 14:15 Notice Type: Patient Choice Letter Notice Delivered To: Patient Relationship to Patient: Explosive Ordnance Disposal Technician Name: Delivery Method: HAND - Hand Delivered Isabel Days: Prior Verbal Notification: Recipient Understood Notice: Yes Recipient Signature: Yes Med Rec Note Co-signed by Attending: Coverage Notice Comment: tyree hester or Clarisa in [place] Last DP export: 10/08/18 2:41 Patient Name: STACY DAVIS Page [id number] at 1625 All edits/amendments must be made on the electronic document DICTATION DATE: 10/08/181623 INTERNAL MEDICINE HOSPITALIST: TAMAR 10/08/181623 RPT#: [id number] DC DATE: STATUS: ADM IN [facility] [address] [place] [address] END OF REPORT
--- NOTE | ~2018-10-05 | MORECARE ---
CASE MANAGEMENT DISCHARGE SUMMARY PATIENT: STACY DAVIS UNIT: [id number] ADM DATE: 10/05/18 AGE: 62 : 53 SEX: F ROOM/BED: D.2106 AUTHOR: KERRI,DOC PHYSICIAN: REFERRING PHYSICIAN: JAIMIE JENSEN MD DATE OF SERVICE: 10/06/18 Discharge Plan Patient Name: STACY DAVIS Facility: [facility]:[place] : 1955 Planned Disposition: Nursing Facility [facility] Cert Anticipated Discharge Date: 10/07/18 Discharge Date: Expected LOS: 2 Initial Reviewer: [id number] Initial Review Date: 10/05/2018 Generated: 10/06/18 6:23 pm Comments DCP- Discharge Planning Updated by [id number]: Balwinder Gomez on 10/06/18 4:[address] Patient Name: STACY DAVIS Admission Status: Elective Accout number: [id number] Admission Date: 10-05-2018 : 1955 Admission Diagnosis: Attending: JAIMIE JENSEN Current LOS: 1 Anticipated DC Date: 10-07-2018 Planned Disposition: Nursing Facility [facility] Cert Primary Insurance: MEDICAID [place] PLANNED EXTERNAL PROVIDER: [facility] IN [place], MCC CARE MEDICAID BED Discharge Planning Comments: CM MET WITH PT IN ROOM TO DISCUSS DISCHARGE PLANNING AND NEEDS. PT REPORTS SHE WENT TO HER DAUGHTER'S HOME BUT SHE FELL AT HOME. FAMILY COULD NOT GET HER UP. PT REPORTS HER FAMILY IS NOT ABLE TO TAKE CARE OF HER AT HOME RIGHT NOW AND THEY ARE TRYING TO GET HER INTO A [facility]. PT IS AGREEABLE TO ANY [facility] THAT HER FAMILY HAS PICKED OUT. PT HAS ROLLING WALKER WITH WHEELS SEAT AND BRAKES AT HOME THAT SHE CANNOT USE RIGHT NOW. PT PERFERS [facility] FOR HER MEDICAL EQUIPMENT. CM RECEIVED CALL FROM GWENDOLYN DRISCOLL, , WHO PROVIDED NAMES OF [facility] AND [facility] IN [place]. CM SPOKE TO PT WHO SIGNED CONSENT FOR THOSE THREE AND IF NEEDED, ANY THAT IS CLOSE TO HER HOME IN [place] SO THAT FAMILY CAN COME SEE HER. PT WAS ACCEPTED AT [facility], [facility], FIRST APPOINTMENT ON 10-05. ALISSA INFORMED CM THAT PT WILL NEED A NEW DIALYSIS CENTER [place] DOES NOT USE GEOVANY LIFT AND [facility] DOES. CM SPOKE TO SILVINA OF [facility] WHO INFORMED CM THAT THE [place] DIAL[facility] UN[facility] IS LIFT EQUIPPED AND [facility] HAVE A MWF SCHEDULE AVAILABLE IF ACCEPTED AT [facility]. CM ASKED PT ABOUT HE SEIZURE DISORDER, PT REPORTS SHE WAS DIAGNOSED AROUND 22 YEARS OF AGE WITH SEIZURES AND TAKES MEDICINE FOR THEM. SHE CANNOT REMEMBER THE LAST TIME SHE HAD A SEIZURE STATING IT HAS BEEN A LONG TIME. CM CALLED [facility], , SPOKE TO FERMIN WHO DECLINED PT. CM CALLED [facility], , PROVIDED BRIEF DESCRIPTION OF NEED AND FAXED REFERRAL FOR [facility]YREE TO [facility] AT [phone]. CM CALLED [facility], , LEFT MESSAGE FOR RICCARDO, FAXED REFERRAL TO [facility] AT [phone]. CM [facility] [place] FOR FORESTRY FACULTY MEMBER CARE. IF ACCEPTED, CM WILL REQUEST DIALYSIS UNIT IN [place]. Ship/Rec/Doc Control: Balwinder Gomez OHPIA - Discharge Planning Initial Assessment Updated by [id number]: Balwinder Gomez on 10/06/18 5:03 pm * Is the patient Alert and Oriented? Yes * How many steps to enter\exit or inside your home? * PCP DR GUZMAN [place] * Pharmacy [facility] IN [place] * Preadmission Environment Home with Family * ADLs Partial Dependent * Partial ADLs (Assistance needed) Ambulation Bathing Dressing Medication Management Toileting Transfers * Equipment Rolling Walker * Other Equipment [facility] - PREFERRED EQUIPMENT PROVIDER * List name and contact numbers for known caregivers / representatives who currently or will assist patient after discharge: FRITZ PERALES DTR, ALISSA DRISCOLL DTR, * Verbal permission to speak to the caregivers and representatives has been obtained from the patient. Yes * Community resources currently utilized Home Health * Please name any agencies selected above. [facility]- NOT ADMITTED DUE TO HOSPITAL READMISSION * Additional services required to return to the preadmission environment? Yes * Can the patient safely return to the preadmission environment? No * Has this patient been hospitalized within the prior 30 days at any hospital? Yes Coverage Notice Reviewer: [id number] Rafael Gomez Notice Issued Date-Time: 10/06/2018 14:15 Notice Type: Patient Choice Letter Notice Delivered To: Patient Relationship to Patient: Design Eng Name: Delivery Method: HAND - Hand Delivered Isabel Days: Prior Verbal Notification: Recipient Understood Notice: Yes Recipient Signature: Yes Med Rec Note Co-signed by Attending: Coverage Notice Comment: tyree hester or Clarisa in [place] Last DP export: 10/06/18 4:08 Patient Name: STACY DAVIS Page [id number] at 1723 All edits/amendments must be made on the electronic document DICTATION DATE: 10/06/181721 CAREER AGENT: TAMAR 10/06/181721 RPT#: [id number] DC DATE: STATUS: ADM IN [facility] [address] [place] [address] END OF REPORT
--- NOTE | ~2018-10-05 | MORECARE ---
CASE MANAGEMENT DISCHARGE SUMMARY PATIENT: STACY DAVIS UNIT: [id number] ADM DATE: 10/05/18 AGE: 62 : 53 SEX: F ROOM/BED: D.2106 AUTHOR: KERRI,DOC PHYSICIAN: REFERRING PHYSICIAN: JAIMIE JENSEN MD DATE OF SERVICE: 10/08/18 Discharge Plan Patient Name: STACY DAVIS Facility: [facility]:[place] : 1955 Planned Disposition: Nursing Facility [facility] Cert Anticipated Discharge Date: 10/07/18 Discharge Date: Expected LOS: 2 Initial Reviewer: [id number] Initial Review Date: 10/05/2018 Generated: 10/08/18 4:41 pm Comments DCP- Discharge Planning Updated by [id number]: Danette Ochoa on 10/08/18 2:[address] RECEIVED A CALL FROM [facility] (I DID NOT WRITE DOWN THE NAME) WHO STATED THAT THEY WOULD ACCEPT THE PATIENT AND THEY ALSO HAVE AN ACCEPTING DIALYSIS FACILITY. SHE ASKED IF WE HAD A VALID SSN ON THE PATIENT, AND ALL I SHOW IN THE COMPUTER IS [id number]. I EXPLAINED THE I KNEW DEREK WAS WORKING ON IT. SHE REQUESTED THAT DEREK CALL REBEKAH AT [phone]. THIS MESSAGE WAS RELAYED TO DEREK. I CONFIRMED WITH SILVINA NGUYEN, DALJIT PRIDE THAT THE PATIENT IS ACCEPTED TO [facility] FOR M-W-F @ 1100. THEY HAVE NO TRANSPORTATION AND WE DISCUSSED SEEING IF SHE WOULD QUALIFY FOR AN AMBULANCE. I HAVE SPOKE WITH DR RAMIRES AND RILEY NOONAN WHO ARE AWARE THAT SHE CAN DISCHARGE AFTER DIALYSIS TOMORROW. DCP- Discharge Planning Updated by [id number]: Balwinder Gomez on 10/07/18 11:[address] Patient Name: STACY DAVIS Encounter No: [id number] : 1955 Primary Insurance: MEDICAID [place] Anticipated DC Date: 10-07-2018 Planned Disposition: Nursing Facility [facility] External Planned Provider: FIRST ACCEPTING FACILITY DCP follow-up note: RECEIVEC CALL FROM RICCARDO [facility], THEY ARE NOT ABLE TO ACCEPT ANY DIALYSIS PATIENTS AT THIS TIME. RICCARDO ASKED PERMISSION TO SEND REFERRAL TO [facility] IN [place], CM EXPLAINED THAT FAMILY WOULD LIKE ANY FACLITY THAT IS ABLE TO CARE FOR PT IN [place] THIS IS THE CLOSEST THAT DIALYSIS IS AVAILABLE WITH A LIFT. CM RECEIVED CALL FROM CEDRIC OF [facility] IN [place], SHE WILL SEND REFERRAL TO HER DOCTOR FOR REVIEW AND SPEAK TO FAMILY. CEDRIC WILL CALL CM WITH DETERMINATION. CM WAITING ADMISSION DETERMINATIONS FROM [facility] AND [facility] IN [place] FOR SENIOR LIVING CARE. IF ACCEPTED, CM WILL REQUEST DIALYSIS UNIT IN [place]. Network Lead: Balwinder Gomez DCP- Discharge Planning Updated by [id number]: Balwinder Gomez on 10/06/18 4:[address] Patient Name: STACY DAVIS Admission Status: Elective Accout number: [id number] Admission Date: 10-05-2018 : 1955 Admission Diagnosis: Attending: JAIMIE JENSEN Current LOS: 1 Anticipated DC Date: 10-07-2018 Planned Disposition: Nursing Facility [facility] Primary Insurance: MEDICAID [place] PLANNED EXTERNAL PROVIDER: [facility] OR [facility] IN [place], TRANSMISSION SPECIALIST CARE MEDICAID BED Discharge Planning Comments: CM MET WITH PT IN ROOM TO DISCUSS DISCHARGE PLANNING AND NEEDS. PT REPORTS SHE WENT TO HER DAUGHTER'S HOME BUT SHE FELL AT HOME. FAMILY COULD NOT GET HER UP. PT REPORTS HER FAMILY IS NOT ABLE TO TAKE CARE OF HER AT HOME RIGHT NOW AND THEY ARE TRYING TO GET HER INTO A [facility]. PT IS AGREEABLE TO ANY [facility] THAT HER FAMILY HAS PICKED OUT. PT HAS ROLLING WALKER WITH WHEELS SEAT AND BRAKES AT HOME THAT SHE CANNOT USE RIGHT NOW. PT PERFERS [facility] FOR HER MEDICAL EQUIPMENT. CM RECEIVED CALL FROM GWENDOLYN DRISCOLL, , WHO PROVIDED NAMES OF [facility], [facility] AND [facility] IN [place]. CM SPOKE TO PT WHO SIGNED CONSENT FOR THOSE THREE AND IF NEEDED, ANY THAT IS CLOSE TO HER HOME IN [place] SO THAT FAMILY CAN COME SEE HER. PT WAS ACCEPTED AT [facility], FIRST APPOINTMENT ON 10-05. ALISSA INFORMED CM THAT PT WILL NEED A NEW DIALYSIS CENTER [place] DOES NOT USE GEOVANY LIFT AND [facility] DOES. CM SPOKE TO SILVINA OF [facility] WHO INFORMED CM THAT THE [place] DIAL[facility] UNIT IS LIFT EQUIPPED AND DOES [facility] HAVE A MWF SCHEDULE AVAILABLE IF ACCEPTED AT [facility]. CM ASKED PT ABOUT HE SEIZURE DISORDER, PT REPORTS SHE WAS DIAGNOSED AROUND 22 YEARS OF AGE WITH SEIZURES AND TAKES MEDICINE FOR THEM. SHE CANNOT REMEMBER THE LAST TIME SHE HAD A SEIZURE STATING IT HAS BEEN A LONG TIME. CM CALLED [facility], , SPOKE TO FERMIN WHO DECLINED PT. CM CALLED JOCELYN OF [facility], , PROVIDED BRIEF DESCRIPTION OF NEED AND FAXED REFERRAL FOR [facility] TO JOCELYN AT [phone]. CM CALLED [facility], , LEFT MESSAGE FOR RICCARDO, FAXED REFERRAL TO [facility] AT [phone]. CM WAITING ADMISSION DETERMINATIONS FROM [facility] AND [facility] IN [place] FOR TRANSMISSION SPECIALIST CARE. IF ACCEPTED, CM WILL REQUEST DIALYSIS UNIT IN [place]. Network Lead: Balwinder Gomez SDPIA - Discharge Planning Initial Assessment Updated by [email or web address]: Balwinder Gomez on 10/06/18 5:03 pm * Is the patient Alert and Oriented? Yes * How many steps to enter\exit or inside your home? * PCP DR GUZMAN [place] * Pharmacy [facility] IN [place] * Preadmission Environment Home with Family * ADLs Partial Dependent * Partial ADLs (Assistance needed) Ambulation Bathing Dressing Medication Management Toileting Transfers * Equipment Rolling Walker * Other Equipment [facility] - PREFERRED EQUIPMENT PROVIDER * List name and contact numbers for known caregivers / representatives who currently or will assist patient after discharge: FRITZ PERALES DTR, ALISSA DRISCOLL DTR, * Verbal permission to speak to the caregivers and representatives has been obtained from the patient. Yes * Community resources currently utilized Home Health * Please name any agencies selected above. [facility]- NOT ADMITTED DUE TO HOSPITAL READMISSION * Additional services required to return to the preadmission environment? Yes * Can the patient safely return to the preadmission environment? No * Has this patient been hospitalized within the prior 30 days at any hospital? Yes Coverage Notice Reviewer: [id number] - Balwinder Gomez Notice Issued Date-Time: 10/06/2018 14:15 Notice Type: Patient Choice Letter Notice Delivered To: Patient Relationship to Patient: Operating Systems Specialist Name: Delivery Method: HAND - Hand Delivered Isabel Days: Prior Verbal Notification: Recipient Understood Notice: Yes Recipient Signature: Yes Med Rec Note Co-signed by Attending: Coverage Notice Comment: tyree hester or Maynor in [place] Last DP export: 10/07/18 12:05 Patient Name: STACY DAVIS Page 43730 at 1541 All edits/amendments must be made on the electronic document DICTATION DATE: 10/08/18 1541 WHEEL WORKER: TAMAR 10/08/18 1541 RPT#: [id number] DC DATE: STATUS: ADM IN [facility] [address] [place] [address] END OF REPORT
[~2018-10-05 12:25] MED LIST: COREG12.5 MG PO; HYDRALAZINE HCL25 MG PO; NORCO 10-325 TA1 TAB PO; NORVASC10 MG PO; PROTONIX40 MG PO; ZYLOPRIM300 MG PO
[2018-10-05 17:40] VITALS: BP 131/52; BMI 41.3
[2018-10-05 19:00] VITALS: BP 148/59
[2018-10-06 01:14] VITALS: BP 127/60
[2018-10-06 05:25] VITALS: BP 136/60
[2018-10-06 05:52] LABS: MCH 28.7 pg (26.0-34.0); MCHC 31.9 g/dL (31.0-37.0); RBC 3.55 10x6/uL (4.00-5.40); WBC 4.8 10x3/uL (4.8-10.8)
[2018-10-06 06:06] LABS: ANION GAP 14.4 mmol/L (8-16); CALCIUM 7.5 mg/dL (8.5-10.1); POTASSIUM - SERUM 4.4 mmol/L (3.5-5.1)
[2018-10-06 06:11] LABS: CREATININE - SERUM 4.8 mg/dL (0.6-1.3)
[2018-10-06 06:45] LABS: HEMOGLOBIN 10.2 g/dL (12-16); MCV 90.1 fL (80.0-100.0); PLATELET COUNT 113 10x3/uL (130-400)
[2018-10-06 07:59] LABS: ANISOCYTOSIS OCC; BASOPHILS 1 % (0-2); EOSINOPHILS 3 % (0-7); HYPOCHROMASIA OCC; LYMPHOCYTES 30 % (15-50); MONOCYTES 22 % (2-11); NEUTROPHILS 44 % (40-80); PLATELET ESTIMATE DECREASED; ROULEAUX OCC
[2018-10-06 09:27] VITALS: BP 144/99
[2018-10-06 19:45] VITALS: BP 135/54
[2018-10-06 23:35] VITALS: BP 127/46
[2018-10-07 03:34] VITALS: BP 150/53
[2018-10-07 06:16] LABS: BASOPHILS 0.4 % (0-2); EOSINOPHILS 6.8 % (0-7); HEMATOCRIT 31.8 % (36.0-48.0); HEMOGLOBIN 10.1 g/dL (12-16); IMMATURE GRANULOCYTES 0.4 % (0-5); LYMPHOCYTES 37.2 % (15-50); MCH 28.7 pg (26.0-34.0); MCHC 31.8 g/dL (31.0-37.0); MCV 90.3 fL (80.0-100.0); MONOCYTES 20.5 % (2-11); NEUTROPHILS 34.7 % (40-80); PLATELET COUNT 103 10x3/uL (130-400); RBC 3.52 10x6/uL (4.00-5.40); RDW 17.9 % (11.5-14.5); WBC 5.1 10x3/uL (4.8-10.8)
[2018-10-07 06:45] LABS: ANION GAP 14.6 mmol/L (8-16); CALCIUM 7.5 mg/dL (8.5-10.1); CARBON DIOXIDE 27.1 mmol/L (21.0-32.0)
[2018-10-07 06:46] LABS: POTASSIUM - SERUM 3.7 mmol/L (3.5-5.1)
[2018-10-07 08:22] VITALS: BP 138/57
[2018-10-07 09:45] VITALS: Ht 175.3 cm; Wt 126.6 kg
[2018-10-07 11:39] VITALS: BP 125/71
[2018-10-07 15:30] VITALS: BP 128/66
[2018-10-07 19:45] VITALS: BP 145/59
[2018-10-07 23:45] VITALS: BP 142/54
[2018-10-08 03:55] VITALS: BP 149/49
[2018-10-08 05:05] LABS: BASOPHILS 0.4 % (0-2); EOSINOPHILS 6.3 % (0-7); HEMATOCRIT 31.1 % (36.0-48.0); HEMOGLOBIN 9.9 g/dL (12-16); IMMATURE GRANULOCYTES 0.2 % (0-5); LYMPHOCYTES 42.4 % (15-50); MCH 28.5 pg (26.0-34.0); MCHC 31.8 g/dL (31.0-37.0); MCV 89.6 fL (80.0-100.0); MONOCYTES 17.1 % (2-11); NEUTROPHILS 33.6 % (40-80); PLATELET COUNT 112 10x3/uL (130-400); RBC 3.47 10x6/uL (4.00-5.40); RDW 17.8 % (11.5-14.5); WBC 4.9 10x3/uL (4.8-10.8)
[2018-10-08 05:28] LABS: ANION GAP 13.7 mmol/L (8-16); CALCIUM 7.5 mg/dL (8.5-10.1); CARBON DIOXIDE 26.4 mmol/L (21.0-32.0); CREATININE - SERUM 4.5 mg/dL (0.6-1.3); POTASSIUM - SERUM 4.1 mmol/L (3.5-5.1)
[2018-10-08 08:35] VITALS: BP 134/59
[2018-10-08 11:34] VITALS: BP 136/56
[2018-10-08 20:00] VITALS: BP 153/52
[2018-10-09 04:00] VITALS: BP 146/50
[2018-10-09 05:00] LABS: BASOPHILS 0.4 % (0-2); EOSINOPHILS 6.5 % (0-7); HEMATOCRIT 32.6 % (36.0-48.0); HEMOGLOBIN 10.3 g/dL (12-16); IMMATURE GRANULOCYTES 0.2 % (0-5); LYMPHOCYTES 44.1 % (15-50); MCH 28.5 pg (26.0-34.0); MCHC 31.6 g/dL (31.0-37.0); MCV 90.1 fL (80.0-100.0); MONOCYTES 14.8 % (2-11); PLATELET COUNT 97 10x3/uL (130-400); RBC 3.62 10x6/uL (4.00-5.40); RDW 17.6 % (11.5-14.5); WBC 4.7 10x3/uL (4.8-10.8)
[2018-10-09 05:32] LABS: ANION GAP 14.2 mmol/L (8-16); CALCIUM 7.2 mg/dL (8.5-10.1); CARBON DIOXIDE 25.6 mmol/L (21.0-32.0); CREATININE - SERUM 3.9 mg/dL (0.6-1.3); POTASSIUM - SERUM 3.8 mmol/L (3.5-5.1)
[2018-10-09 09:56] VITALS: BP 142/60
== END 2018-10-09 13:23 ==
LOC: D.M2 12:25 → OBSVTIME 16:46 → D.M2 16:46
PROVIDERS: Family Medicine
DX: E11.22 Type 2 diabetes mellitus with diabetic chronic kidney disease (principal); I13.2 Hypertensive heart and chronic kidney disease with heart failure and with stage 5 chronic kidney disease, or end stage renal disease; I50.32 Chronic diastolic (congestive) heart failure; N18.6 End stage renal disease; Z99.2 Dependence on renal dialysis; J44.9 Chronic obstructive pulmonary disease, unspecified; E78.5 Hyperlipidemia, unspecified; G93.41 Metabolic encephalopathy; D64.9 Anemia, unspecified